=== PATIENT | female | born 1965 | race Caucasian/White ===

== ENCOUNTER → 2025-07-12 | Outpatient (CLI) | payer BC, SELFPAY ==
[2025-07-12 17:54] LABS: Hematocrit 37.3 % (37-47); Hemoglobin 12.4 g/dL (12.0-15.0); Immature Granulocytes Count 0.000 X10^3/uL (0.0-0.0); Mean Corp Hgb Conc 33.2 g/dL (32-36); Mean Corpuscular Volume 101.4 fL (81-99); Mean Platelet Vol. 9.6 fl (6.2-12.0); NRBC Flagged by Analyzer 0 % (0-5); Platelet Count 202 K/mm3 (150-450); RBC Distribution Width CV 13.4 % (11.6-14.6); RBC Distribution Width SD 49.6 fl (35.1-43.9); Red Blood Count 3.68 M/mm3 (4.2-5.4); White Blood Count 3.7 K/mm3 (4.4-11.0)
[2025-07-12 18:12] LABS: AST(SGOT) 37 U/L (<=31); Alanine Aminotransfer ALT/SGPT 36 U/L (<=34); Albumin, Serum 4.2 g/dL (3.5-5.0); Alkaline Phosphatase 66 U/L (35-104); Anion Gap 9 (5-15); BUN 16 mg/dL (4-19); BUN/Creat Ratio 14.9 RATIO (10-20); Calcium,Total 9.2 mg/dL (7.6-11.0); Carbon Dioxide 26.8 mmol/L (21.0-32.0); Chloride 104 mmol/L (98-108); Cholesterol 241 mg/dL (<=200); Globulin 2.6 g/dL (2.2-4.2); Glucose 104 mg/dL (70-99); Low Density Lipoprotein Calc. 127 mg/dL; Potassium 4.6 mmol/L (3.3-5.1); Triglycerides 170 mg/dL; Very Low Density Lipoprotein 34 mg/dL (5-40); Vitamin B12 1297 pg/mL (180-914); Vitamin D,25 Hydroxy 37.7 ng/mL (30-100); cholesterol:hdl ratio screen 2.83
== END | disposition home or self-care (01) ==
LOC: VSLAB 16:08
PROVIDERS: Referring Provider Nurse Practitioner Family; Visit Provider Nurse Practitioner Family
DX: M06.9 Rheumatoid arthritis, unspecified (principal); E56.9 Vitamin deficiency, unspecified
CPT/HCPCS: 36415; 80053; 80061; 82306; 82607; 84443; 85025; 86376; 86800

== ENCOUNTER → 2025-08-09 | Outpatient (CLI) | payer BC, SELFPAY ==
--- OUTSIDE RECORDS SUMMARY | 2025-08-09 14:30 | XMS RPT_ITS | CCD ---
Author Organization [facility] Care Team Providers Care Machine Design Checker Name Role Phone ROBBY, PACHECO D Unavailable Unavailable REFERRED, SELF Unavailable Unavailable WAGES, YURI W Unavailable Unavailable ROBBY, PACHECO D Unavailable Unavailable ROBBY, PACHECO D Unavailable Unavailable WAGES, YURI W Unavailable Unavailable WAGES, YURI W Unavailable Unavailable ROBBY, PACHECO D Unavailable Unavailable ROBBY, PACHECO D Unavailable Unavailable WAGES, YURI W Unavailable Unavailable ROBBY, PACHECO D Unavailable Unavailable ROBBY, PACHECO D Unavailable Unavailable WAGES, YURI W Unavailable Unavailable ROBBY, PACHECO D Unavailable Unavailable ROBBY, PACHECO D Unavailable Unavailable WAGES, YURI W Unavailable Unavailable ROBBY, PACHECO D Unavailable Unavailable ROBBY, PACHECO D Unavailable Unavailable WAGES, YURI W Unavailable Unavailable ROBBY, PACHECO D Unavailable Unavailable ROBBY, PACHECO D Unavailable Unavailable WAGES, YURI W Unavailable Unavailable ROBBY, PACHECO D Unavailable Unavailable ROBBY, PACHECO D Unavailable Unavailable WAGES, YURI W Unavailable Unavailable ROBBY, PACHECO D Unavailable Unavailable ROBBY, PACHECO D Unavailable Unavailable WAGES, YURI W Unavailable Unavailable ROBBY, PACHECO D Unavailable Unavailable ROBBY, PACHECO D Unavailable Unavailable José Miguel Elizabeth Unavailable Unavailable Wages, Yuri Unavailable Unavailable Wages, Yuri Unavailable Unavailable Wages, Yuri W Primary Care Provider José Miguel Elizabeth Primary Care Provider José Miguel Elizabeth MD Primary Care Provider JOSÉ MIGUEL ELIZABETH Primary Care Unavailable José Miguel Elizabeth MD Primary Care Provider [phone] José Miguel Elizabeth MD Primary Care Provider JOSÉ MIGUEL ELIZABETH Primary Care Unavailable KERRY JEREZ Referring Unavailable JOSÉ MIGUEL ELIZABETH Primary Care Unavailable MAXINE JEREZISTEN Referring Unavailable José Miguel Elizabeth Primary Care Provider [phone] José Miguel Elizabeth MD Primary Care Provider JOSÉ MIGUEL ELIZABETH Attending Unavailable JOSÉ MIGUEL ELIZABETH Referring Unavailable ELIZABETH, JOSÉ MIGUEL Primary Care Unavailable JOSÉ MIGUEL ELIZABETH Attending Unavailable GLENN, JOSÉ MIGUEL Referring Unavailable ELIZABETH, JOSÉ MIGUEL Primary Care Unavailable JOSÉ MIGUEL ELIZABETH Attending Unavailable GLENN, JOSÉ MIGUEL Referring Unavailable GLENN, JOSÉ MIGUEL Primary Care Unavailable DASH-BUCK, EVANGELINA Attending Unavailable JOSÉ MIGUEL ELIZABETH Primary Care Unavailable Logan STEVENSON, Addison Echeverria Unavailable Mike Santamaria Jr, DO Unavailable José Miguel Elizabeth MD Unavailable [phone] Medications Current Medications Medication Drug Class(es) Dates Sig (Normalized) Sig (Original) benoxinate hydrochloride 4 mg/ml / fluorescein sodium 3 mg/ml ophthalmic solution (4 sources) Diagnostic Dye Start: 03-20-2025 End: 03-20-2025 fluorescein-benoxi messi 0.3-0.4 % 1 drop (FLURESS) Start: 03-20-2025 End: 03-20-2025 1 drop, BOTH EYES, DIRECT ED, Starting on Thu03/20/25 at 0800, Until Thu03/20/25 at 1959, Administer for applanation tonometry. In the event of a Fluress shortage, administer 1 drop of Amanda-Fluor into both eyes as directed for applanation tonometry., [facility] MED ORDERS Start: 01-16-2022 End: 01-16-2022 fluorescein-benoxinate 0.25- 0.4 % 1 Drop (FLURESS) Start: 12-27-2021 End: 12-28-2021 fluorescein-benoxinate 0.25- 0.4 % 1 Drop (FLURESS) 1 ml certolizumab pegol 200 mg/ml prefilled syringe (8 sources) Cimzia 400 mg/2 mL (200 mg/mL x 2) subcutaneous syringe kit one injection once every two weeks active Annamaria Martinez AT [facility] Comment on above: Inject 400 mg subcut aneously every 2 weeks. erythromycin base (ILOTYCIN OPHTHALMIC) (7 sources) erythromycin bas e (ILOTYCIN OPHTHALMIC) Use 1 application in the right eye daily at bedtime. Active erythromycin bas e (ILOTYCIN OPHTHALMIC) Use 1 application in the right eye daily at bedtime. 0 Active Comment on above: Use 1 application in the right eye daily at bedtime. folic acid 1 mg oral tablet (8 sources) take 2 tablets by mouth once daily folic acid 1 mg tablet two tablets by mouth once daily active Annamaria Martinez AT [facility] take 1 tablet by mouth twice anival ly folic acid 1 mg tablet Take 1 mg by mouth twice daily. Active Comment on above: Take 1 mg by mouth t wice daily. gabapentin 100 mg oral capsule (2 sources) Anti-epileptic Agent Start: 03-17-2025 gabapentin (NEURONTIN) 100 mg capsule 03/17/2025 Active gabapentin 100 m g capsule two tablets at bedtime active Annamaria Martinez AT [facility] lansoprazole 30 mg delayed release oral capsule (8 sources) Proton Pump Inhibitor Start: 09-15-2013 take 1 capsule by mouth once daily Prevacid 30 mg capsule,delayed release 1 capsule by mouth once a day active Will Srivastava ATC [facility] take 15 mg by mouth once daily L ANSOPRAZOLE ORAL Take 15 mg by mouth once daily. Active Comment on above: Take 15 mg by mouth once daily. meloxicam 15 mg oral tablet (8 sources) Nonsteroidal Anti-inflammatory Drug take 1 tablet by mouth once daily meloxicam 15 mg tablet one tablet by mouth once daily active Annamaria Martinez AT [facility] Comment on above: Take 15 mg by mouth once daily. Methotrexate (8 sources) Folate Analog Metabolic Inhibitor Start: 4 methotrexate sodium 2.5 mg tablet 8 tablet once a week active Etta Suggs LPN [facility] take 8 tablets by mouth once met hotrexate 2.5 mg tablet Take by mouth one time only. 8 tablets every thursday Active Comment on above: Take by mouth one ti me only. 8 tablets every thursday phenylephrine hydrochloride 25 mg/ml ophthalmic solution (3 sources) alpha-1 Adrenergic Agonist Start: 03-20-2025 End: 03-20-2025 PHENYLephrine 2.5 % 1 drop (AK-DILATE, ANNIE-SYNEPHRINE) Start: 03-20-2025 End: 03-20-2025 1 drop, BOTH EYES, DIRECT ED, Starting on Thu03/20/25 at 0800, Until Thu03/20/25 at 1958, Administer for dilation PROTECT FROM LIGHT, [facility] Start: 12-27-2021 End: 12-28-2021 PHENYLephrine 2.5 % 1 Drop ( AK-DILATE, ANNIE-SYNEPHRINE) prednisoLONE acetate 10 mg/ml ophthalmic suspension (7 sources) Corticosteroid Start: 06-13-2021 prednisoLONE a cetate (PRED FORTE, ECONOPRED PLUS) 1 % ophthalmic suspension Use 1 Drop in the right eye four times daily. 5 mL 1 06/13/2021 Active Start: 06-13-2021 prednisoLONE a cetate (PRED FORTE, ECONOPRED PLUS) 1 % ophthalmic suspension Use 1 Drop in the right eye four times daily. 5 mL 1 06/13/2021 Active Comment on above: Use 1 Drop in the ri ght eye four times daily. predniSONE 5 mg oral tablet (8 sources) take 1 tablet by mouth once daily prednisone 5 mg tablet one tablet by mouth once daily active Annamaria Martinez AT [facility] Comment on above: Take 5 mg by mouth o nce daily. As needed proparacaine hydrochloride 5 mg/ml ophthalmic solution (1 source) Local Anesthetic Start: 03-20-20 End: 03-20-20 proparacaine 0.5 % 1 drop (ALCAINE) traMADol hydrochloride 50 mg oral tablet (8 sources) Opioid Agonist take 1 tablet by mouth once daily tramadol 50 mg tablet one tablet by mouth once daily active Annamaria Martinez AT [facility] Comment on above: Take 50 mg by mouth once daily as needed (pain). As needed tropicamide 10 mg/ml ophthalmic solution (3 sources) Anticholinergic Start: 03-20-20 End: 03-20-20 tropicamide 1 % 1 drop (MYDRIACYL) Start: 03-20-2025 End: 03-20-2025 1 drop, BOTH EYES, DIRECT ED, Starting on Thu03/20/25 at 0800, Until Thu03/20/25 at 1959, Administer for dilation, [facility] MED ORDERS Start: 12-27-2021 End: 12-28-2021 tropicamide 1 % 1 Drop (MYDR IACYL) Problems Active Problems Problem Classification Problem Date Documented Date Episodic/Chronic Blindness and vision defects (12 sources) Subjective visual disturbance; Translations: [Unspecified subjective visual disturbances] Onset: 09-19-2021 Episodic Cataract (20 sources) Pseudophakia of right eye; Translations: [Presence of intraocular lens] Onset: 05-14-2015 Chronic Nutritional deficiencies (6 sources) Vitamin D deficiency; Translations: [Vitamin D deficiency, unspecified] Onset: 01-16-2022 01-16-2022 Chronic Osteoarthritis (16 sources) Bilateral arthritis of knees; Translations: [Bilateral primary osteoarthritis of knee] Onset: 01-16-2022 01-16-2022 Chronic Other acquired deformities (1 source) Equinus contracture of the ankle; Translations: [Contracture, left ankle] Onset: 03-31-2023 03-31-2023 Chronic Other connective tissue disease (1 source) History of total knee arthroplasty; Translations: [Presence of right artificial knee joint] Onset: 09-10-2023 11-26-2023 Chronic Other eye disorders (7 sources) Vitreous syneresis; Translations: [Other vitreous opacities, right eye] Onset: 09-19-2021 09-19-2021 Chronic Other eye disorders (2 sources) Tear film insufficiency; Translations: [Dry eye syndrome of bilateral lacrimal glands] Episodic Other eye disorders (1 source) Dry eye syndrome of bilateral lacrimal glands; Translations: [Dry eye syndrome, bilateral] Onset: 03-20-2025 Episodic Other injuries and conditions due to external causes (1 source) History of injury of globe of eye; Translations: [Personal history of other (healed) physical injury and trauma] 03-20-2025 Episodic Other injuries and conditions due to external causes (1 source) Personal history of other (healed) physical injury and trauma; Translations: [History of corneal abrasion] Onset: 03-20-2025 Episodic Other non-traumatic joint disorders (2 sources) Other specific arthropathies, not elsewhere classified, right shoulder; Translations: [Arthropathy, unspecified, shoulder region] Onset: 06-21-2025 06-21-2025 Chronic Other non-traumatic joint disorders (3 sources) Pain in right knee; Translations: [Pain in joint, lower leg] Onset: 10-12-2023 10-12-2023 Episodic Other screening for suspected conditions (not mental disorders or infectious disease) (17 sources) Encounter for screening mammogram for malignant neoplasm of breast; Translations: [Patient encounter status] Onset: 08-19-2018 09-22-2023 Episodic Residual codes; unclassified (1 source) Localized edema; Translations: [Localized edema] Onset: 02-17-2024 Episodic Residual codes; unclassified (1 source) Edema; Translations: [Edema, unspecified] 02-29-2024 Episodic Residual codes; unclassified (1 source) Other specified postprocedural states; Translations: [History of ptosis repair] Onset: 03-20-2025 Episodic Rheumatoid arthritis and related disease (8 sources) Rheumatoid arthritis; Translations: [Rheumatoid arthritis, unspecified] Onset: 01-16-2022 01-16-2022 Chronic Spondylosis; intervertebral disc disorders; other back problems (6 sources) Degeneration of lumbar intervertebral disc; Translations: [Other intervertebral disc degeneration, lumbar region] Onset: 01-16-2022 01-16-2022 Chronic Superficial injury; contusion (1 source) Abrasion of cornea of right eye; Translations: [Injury of conjunctiva and corneal abrasion without foreign body, right eye, subsequent encounter] Episodic Past or Other Problems Problem Classification Problem Date Documented Da te Episodic/Chronic Fracture of lower limb (1 source) Closed fracture of ankle; Translations: [Other fracture of right lower leg, initial encounter for closed fracture] Onset: 04-12-2024 04-12-2024 Episodic Other aftercare (6 sources) Long-term current use of drug therapy; Translations: [Other correction (current) drug therapy] Onset: 01-16-2022 01-16-2022 Episodic Other connective tissue disease (6 sources) Dupuytren's contracture; Translations: [Palmar fascial fibromatosis [Dupuytren]] Onset: 01-16-2022 01-16-2022 Episodic Other connective tissue disease (6 sources) Trochanteric bursitis of left hip; Translations: [Trochanteric bursitis, left hip] Onset: 01-16-2022 01-16-2022 Episodic Other connective tissue disease (1 source) Achilles tendinitis; Translations: [Achilles tendinitis, left leg] Onset: 03-31-2023 03-31-2023 Episodic Other diseases of kidney and ureters (6 sources) Abnormal renal function; Translations: [Disorder of kidney and ureter, unspecified] Onset: 01-16-2022 01-16-2022 Episodic Other injuries and conditions due to external causes (1 source) Injury of lower leg; Translations: [Other injury of other muscle(s) and tendon(s) at lower leg level, right leg, initial encounter] Onset: 03-31-2023 03-31-2023 Episodic Results Test Name Value Interpretation Reference Range Facility Relevant diagnostic tests/la boratory data Narrativeon 06-21-2025 Fall risk assessment no [id number] Work Phone: MEDS REVIEW Done [employer] Work Phone: MEDS REVIEWD Medications reviewed with changes [employer] Work Phone: XRAY HX of the right shoulde r on 06/12/2025 at [facility] [employer] Work Phone: BI US BREAST LIMITED LEFTon 11-02-2024 BI US BREAST LIMITED LEFT This is a summary report. The complete report is available in the patient's medical record. If you cannot access the medical record, please contact the sending organization for a detailed fax or copy. Patient Name: MALIA [facility]REVINO : 1965 [id number] Exam Date/Time: 11/02/2024 13:45 Procedure: BI US BREAST LIMITED LEFT Ordering Provider: ELIZABETH KRISTY Reason For Exam: ABNORMAL MAMMOGRAM This exam was performed at [facility] [address] [place] [id number] PATIENT CANCER HISTORY: No Personal History of Cancer (accession [id number]), PATIENT CANCER HISTORY: No Personal History of Cancer (accession [id number]) FAMILY CANCER HISTORY: Maternal Grandmother Colon Cancer age 80 (accession [id number]), FAMILY CANCER HISTORY: Maternal Grandmother Colon Cancer age 80 (accession [id number]) COMPARISONS: 09/27/2024 MAMMOGRAM: Image views: 2D CC and MLO views were acquired. 3D CC and MLO views were acquired. Markings on images: BB's = Nipples; skin lesions Open [place] = Palpable Line = Scar TISSUE DENSITY: BIRADS B - There are scattered areas of fibroglandular density. Images were reviewed with CAD. FINDINGS: The patient is a 59-year-old who was recalled from a screening mammogram dated 09/27/2024 for asymmetry in the superior, mid depth of the left breast in the MLO view. Additional views fail to demonstrate a discrete mass or parenchymal distortion. The area of asymmetry is less conspicuous compared to the screening mammogram of 09/27/2024. The patient was sent for ultrasound evaluation. BREAST ULTRASOUND: FINDINGS: Targeted ultrasound of the left breast was performed. The upper inner and upper outer quadrants were surveyed. No mass or focal abnormality is seen. IMPRESSION: No mass or focal abnormality is seen. The patient may resume routine screening mammograms in one year. ASSESSMENT: Category 1 Negative RECOMMENDATION: Routine screening mammogram in 1 year. Bilateral CANCER RISK ASSESSMENT: This risk assessment is based on patient provided information collected in a risk survey taken at the time of this examination. LIFETIME BREAST CANCER RISK: Sheila 8: 11.61% - If greater than or equal to 20%, consider annual mammogram and annual screening Breast MRI or follow up in high risk clinic. Is the patient at elevated risk based on the HBOC criteria? No (Hereditary Breast and Ovarian Cancer) - If Yes, consider genetic counseling and testing with high risk follow up Is the patient at elevated risk based on the Gonzales Syndrome criteria? No - If Yes, consider genetic counseling and testing with high risk follow up. Report Dictated on Electronically Signed By: Ary Dozier MD Electronically Signed Date/Time: 11/02/2024 1:58 PM EST Normal [facility] DBT Breast - left diagnostic on 11-02-2024 Patient Name: MALIA LEE : 1965 Exam Date/Time: 11/02/2024 13:02 Procedure: BI MAMMOGRAM DIAGNOSTIC TOMOSYNTHESIS LEFT Ordering Provider: ELIZABETH KRISTY Reason For Exam: This exam was performed at [facility] [address] [place] [id number] PATIENT CANCER HISTORY: No Personal History of Cancer (accession [id number]), PATIENT CANCER HISTORY: No Personal History of Cancer (accession [id number]) FAMILY CANCER HISTORY: Maternal Grandmother Colon Cancer age 80 (accession [id number]), FAMILY CANCER HISTORY: Maternal Grandmother Colon Cancer age 80 (accession [id number]) COMPARISONS: 09/27/2024 MAMMOGRAM: Image views: 2D CC and MLO views were acquired. 3D CC and MLO views were acquired. Markings on images: BB's = Nipples; skin lesions Open [place] = Palpable Line = Scar TISSUE DENSITY: BIRADS B - There are scattered areas of fibroglandular density. Images were reviewed with CAD. FINDINGS: The patient is a 59-year-old who was recalled from a screening mammogram dated 09/27/2024 for asymmetry in the superior, mid depth of the left breast in the MLO view. Additional views fail to demonstrate a discrete mass or parenchymal distortion. The area of asymmetry is less conspicuous compared to the screening mammogram of 09/27/2024. The patient was sent for ultrasound evaluation. BREAST ULTRASOUND: FINDINGS: Targeted ultrasound of the left breast was performed. The upper inner and upper outer quadrants were surveyed. No mass or focal abnormality is seen. [facility] Ary Dozier MD - 11/02/2024 Patient Name: MALIA [facility]REVINO : 1965 [id number] Exam Date/Time: 11/02/2024 13:02 Procedure: BI MAMMOGRAM DIAGNOSTIC TOMOSYNTHESIS LEFT Ordering Provider: ELIZABETH KRISTY Reason For Exam: This exam was performed at [facility] [address] [facility] [address] PATIENT CANCER HISTORY: No Personal History of Cancer (accession [id number]), PATIENT CANCER HISTORY: No Personal History of Cancer (accession [id number]) FAMILY CANCER HISTORY: Maternal Grandmother Colon Cancer age 80 (accession [id number]), FAMILY CANCER HISTORY: Maternal Grandmother Colon Cancer age 80 (accession [id number]) COMPARISONS: 09/27/2024 MAMMOGRAM: Image views: 2D CC and MLO views were acquired. 3D CC and MLO views were acquired. Markings on images: BB's = Nipples; skin lesions Open [place] = Palpable Line = Scar TISSUE DENSITY: BIRADS B - There are scattered areas of fibroglandular density. Images were reviewed with CAD. FINDINGS: The patient is a 59-year-old who was recalled from a screening mammogram dated 09/27/2024 for asymmetry in the superior, mid depth of the left breast in the MLO view. Additional views fail to demonstrate a discrete mass or parenchymal distortion. The area of asymmetry is less conspicuous compared to the screening mammogram of 09/27/2024. The patient was sent for ultrasound evaluation. BREAST ULTRASOUND: FINDINGS: Targeted ultrasound of the left breast was performed. The upper inner and upper outer quadrants were surveyed. No mass or focal abnormality is seen. IMPRESSION: No mass or focal abnormality is seen. The patient may resume routine screening mammograms in one year. ASSESSMENT: Category 1 Negative RECOMMENDATION: Routine screening mammogram in 1 year. Bilateral CANCER RISK ASSESSMENT: This risk assessment is based on patient provided information collected in a risk survey taken at the time of this examination. LIFETIME BREAST CANCER RISK: Sheila 8: 11.61% - If greater than or equal to 20%, consider annual mammogram and annual screening Breast MRI or follow up in high risk clinic. Is the patient at elevated risk based on the HBOC criteria? No (Hereditary Breast and Ovarian Cancer) - If Yes, consider genetic counseling and testing with high risk follow up Is the patient at elevated risk based on the Gonzales Syndrome criteria? No - If Yes, consider genetic counseling and testing with high risk follow up. Report Dictated on Electronically Signed By: Ary Dozier MD Electronically Signed Date/Time: 11/02/2024 1:58 PM EST [facility] Study observation (narrative) [facility] No Panel Informationon 11-02 No mass or focal abnormality is seen. The patient may resume routine screening mammograms in one year. ASSESSMENT: Category 1 Negative RECOMMENDATION: Routine screening mammogram in 1 year. Bilateral CANCER RISK ASSESSMENT: This risk assessment is based on patient provided information collected in a risk survey taken at the time of this examination. LIFETIME BREAST CANCER RISK: Sheila 8: 11.61% - If greater than or equal to 20%, consider annual mammogram and annual screening Breast MRI or follow up in high risk clinic. Is the patient at elevated risk based on the HBOC criteria? No (Hereditary Breast and Ovarian Cancer) - If Yes, consider genetic counseling and testing with high risk follow up Is the patient at elevated risk based on the Gonzales Syndrome criteria? No - If Yes, consider genetic counseling and testing with high risk follow up. Report Dictated on Electronically Signed By: Ary Dozier MD Electronically Signed Date/Time: 11/02/2024 1:58 PM [facility] No Panel InformationOrdered By: Ary Dozier on 11-02-2024 [facility] Phone: US Breast - left limitedon 0 11-02-2024 Patient Name: MALIA LEE : 1965 Exam Date/Time: 11/02/2024 13:45 Procedure: BI US BREAST LIMITED LEFT Ordering Provider: ELIZABETH KRISTY Reason For Exam: ABNORMAL MAMMOGRAM This exam was performed at [facility] [address] [place] [address] PATIENT CANCER HISTORY: No Personal History of Cancer (accession [id number]), PATIENT CANCER HISTORY: No Personal History of Cancer (accession [id number]) FAMILY CANCER HISTORY: Maternal Grandmother Colon Cancer age 80 (accession [id number]), FAMILY CANCER HISTORY: Maternal Grandmother Colon Cancer age 80 (accession [id number]) COMPARISONS: 09/27/2024 MAMMOGRAM: Image views: 2D CC and MLO views were acquired. 3D CC and MLO views were acquired. Markings on images: BB's = Nipples; skin lesions Open [place] = Palpable Line = Scar TISSUE DENSITY: BIRADS B - There are scattered areas of fibroglandular density. Images were reviewed with CAD. FINDINGS: The patient is a 59-year-old who was recalled from a screening mammogram dated 09/27/2024 for asymmetry in the superior, mid depth of the left breast in the MLO view. Additional views fail to demonstrate a discrete mass or parenchymal distortion. The area of asymmetry is less conspicuous compared to the screening mammogram of 09/27/2024. The patient was sent for ultrasound evaluation. BREAST ULTRASOUND: FINDINGS: Targeted ultrasound of the left breast was performed. The upper inner and upper outer quadrants were surveyed. No mass or focal abnormality is seen. [facility] Ary Dozier MD - 11/02/2024 Patient Name: MALIA TREVINO : 1965 Exam Date/Time: 11/02/2024 13:45 Procedure: BI US BREAST LIMITED LEFT Ordering Provider: ELIZABETH KRISTY Reason For Exam: ABNORMAL MAMMOGRAM This exam was performed at [facility] [address] [place], [place] [id number] PATIENT CANCER HISTORY: No Personal History of Cancer (accession [id number]), PATIENT CANCER HISTORY: No Personal History of Cancer (accession [id number]) FAMILY CANCER HISTORY: Maternal Grandmother Colon Cancer age 80 (accession [id number]), FAMILY CANCER HISTORY: Maternal Grandmother Colon Cancer age 80 (accession [id number]) COMPARISONS: 09/27/2024 MAMMOGRAM: Image views: 2D CC and MLO views were acquired. 3D CC and MLO views were acquired. Markings on images: BB's = Nipples; skin lesions Open [place] = Palpable Line = Scar TISSUE DENSITY: BIRADS B - There are scattered areas of fibroglandular density. Images were reviewed with CAD. FINDINGS: The patient is a 59-year-old who was recalled from a screening mammogram dated 09/27/2024 for asymmetry in the superior, mid depth of the left breast in the MLO view. Additional views fail to demonstrate a discrete mass or parenchymal distortion. The area of asymmetry is less conspicuous compared to the screening mammogram of 09/27/2024. The patient was sent for ultrasound evaluation. BREAST ULTRASOUND: FINDINGS: Targeted ultrasound of the left breast was performed. The upper inner and upper outer quadrants were surveyed. No mass or focal abnormality is seen. IMPRESSION: No mass or focal abnormality is seen. The patient may resume routine screening mammograms in one year. ASSESSMENT: Category 1 Negative RECOMMENDATION: Routine screening mammogram in 1 year. Bilateral CANCER RISK ASSESSMENT: This risk assessment is based on patient provided information collected in a risk survey taken at the time of this examination. LIFETIME BREAST CANCER RISK: Sheila 8: 11.61% - If greater than or equal to 20%, consider annual mammogram and annual screening Breast MRI or follow up in high risk clinic. Is the patient at elevated risk based on the HBOC criteria? No (Hereditary Breast and Ovarian Cancer) - If Yes, consider genetic counseling and testing with high risk follow up Is the patient at elevated risk based on the Gonzales Syndrome criteria? No - If Yes, consider genetic counseling and testing with high risk follow up. Report Dictated on Electronically Signed By: Ary Dozier MD Electronically Signed Date/Time: 11/02/2024 1:58 PM EST [facility] Study observation (narrative) [facility] DBT Breast - bilateral scree ningOrdered By: Ary Dozier on 09-27-2024 Interpretation and review of laboratory results Abnormal [employer] Phone: [employer] Phone: DBT Breast - bilateral scree ningon 09-27-2024 Left breast asymmetr y ASSESSMENT: Category 0 Incomplete: need additional imaging evaluation RECOMMENDATION: Follow-up diagnostic mammogram Left And breast ultrasound if necessary. CANCER RISK ASSESSMENT: This risk assessment is based on patient provided information collected in a risk survey taken at the time of this examination. LIFETIME BREAST CANCER RISK: Shewta-Jacquelyn 8: 11.61% - If greater than or equal to 20%, consider annual mammogram and annual screening Breast MRI or follow up in high risk clinic. Is the patient at elevated risk based on the HBOC criteria? No (Hereditary Breast and Ovarian Cancer) - If Yes, consider genetic counseling and testing with high risk follow up Is the patient at elevated risk based on the Gonzales Syndrome criteria? No - If Yes, consider genetic counseling and testing with high risk follow up. Report Dictated on Electronically Signed By: Ary Dozier MD Electronically Signed Date/Time: 09/27/2024 12:54 PM EST [facility] Patient Name: MALIA LEE : 1965 Exam Date/Time: 09/27/2024 12:03 Procedure: BI MAMMOGRAM SCREENING TOMOSYNTHESIS BILATERAL Ordering Provider: ELIZABETH KRISTY Reason For Exam: This exam was performed at [facility] [address] [place] [address] PATIENT CANCER HISTORY: No Personal History of Cancer FAMILY CANCER HISTORY: Maternal Grandmother Colon Cancer age 80 Image views: 2D Bilateral CC and MLO views were acquired. 3D Bilateral CC and MLO views were acquired. Images were reviewed with CAD. Markings on images: BB's = Nipples; skin lesions Open [place] = Palpable Line = Scar COMPARISON: 09/10/2022, 09/22/2023 TISSUE DENSITY: BIRADS B - There are scattered areas of fibroglandular density. FINDINGS: There is asymmetry in the mid depth of the left breast just above the nipple line in the MLO view. No discrete masses, parenchymal distortion or suspicious calcifications are seen on the right. [facility] Ary Dozier MD - 09/27/2024 Patient Name: MALIA TREVINO : 1965 Exam Date/Time: 09/27/2024 12:03 Procedure: BI MAMMOGRAM SCREENING TOMOSYNTHESIS BILATERAL Ordering Provider: ELIZABETH KRISTY Reason For Exam: This exam was performed at [facility] [address] [place] [address] PATIENT CANCER HISTORY: No Personal History of Cancer FAMILY CANCER HISTORY: Maternal Grandmother Colon Cancer age 80 Image views: 2D Bilateral CC and MLO views were acquired. 3D Bilateral CC and MLO views were acquired. Images were reviewed with CAD. Markings on images: BB's = Nipples; skin lesions Open [place] = Palpable Line = Scar COMPARISON: 09/10/2022, 09/22/2023 TISSUE DENSITY: BIRADS B - There are scattered areas of fibroglandular density. FINDINGS: There is asymmetry in the mid depth of the left breast just above the nipple line in the MLO view. No discrete masses, parenchymal distortion or suspicious calcifications are seen on the right. IMPRESSION: Left breast asymmetry ASSESSMENT: Category 0 Incomplete: need additional imaging evaluation RECOMMENDATION: Follow-up diagnostic mammogram Left And breast ultrasound if necessary. CANCER RISK ASSESSMENT: This risk assessment is based on patient provided information collected in a risk survey taken at the time of this examination. LIFETIME BREAST CANCER RISK: Sheila 8: 11.61% - If greater than or equal to 20%, consider annual mammogram and annual screening Breast MRI or follow up in high risk clinic. Is the patient at elevated risk based on the HBOC criteria? No (Hereditary Breast and Ovarian Cancer) - If Yes, consider genetic counseling and testing with high risk follow up Is the patient at elevated risk based on the Gonzales Syndrome criteria? No - If Yes, consider genetic counseling and testing with high risk follow up. Report Dictated on Electronically Signed By: Ary Dozier MD Electronically Signed Date/Time: 09/27/2024 12:54 PM EST [facility] Study observation (narrative) [facility] CT CHEST W IVCON PEon 2023 CT CHEST W IVCON PE * * *Final Report* * * DATE OF EXAM: Feb 17 2024 12:21PM [facility] 0540 - CT CHEST W IVCON PE / PROCEDURE REASON: r06.02 * * * * Physician Interpretation * * * * EXAMINATION: CHEST CT WITH CONTRAST (PULMONARY EMBOLISM PROTOCOL) CLINICAL HISTORY: Right arm and leg swelling Technique: Spiral CT acquisition of the chest from the thoracic inlet to the upper abdomen following IV contrast. Axial 1 and 3 mm thick slices plus coronal and sagittal reformatted images. MQ: CTCP_5 Contrast: 62 mL Omnipaque [address] Radiation dose: Integrated Dose-length product (DLP) for this visit = 483 mGy*cm CT Dose Reduction Employed: Automated exposure control (AEC) Comparison: No relevant prior studies available. RESULT: Limitations: None. Evaluation for thromboembolic disease: - Right heart chambers: No thromboembolic disease. - Main pulmonary arteries: No thromboembolic disease. - Lobar pulmonary arteries: No thromboembolic disease. - Segmental pulmonary arteries: No thromboembolic disease. - Subsegmental pulmonary arteries: No thromboembolic disease. - Additional pulmonary artery findings: The main pulmonary artery is normal in caliber. Lines, tubes, and devices: None. Lung parenchyma and airways: No consolidation. No suspicious pulmonary nodule. The central airways are patent. Pleural space: No pleural effusion. No pleural thickening. Lower neck, lymph nodes, and mediastinum: The imaged thyroid gland is normal. No lymphadenopathy in the supraclavicular, axillary, mediastinal, or hilar regions. Heart, pericardium, and thoracic vessels: The thoracic aorta is normal in caliber. The cardiac chambers are normal in size. No coronary artery atherosclerotic calcifications are noted, although the study is not optimized for coronary assessment. No pericardial effusion or thickening. Bones and soft tissues: There is fluid distention of the right subcoracoid bursa. Osteoarthritis of the left shoulder noted. Upper abdomen: 0.6 cm hypodensity at the posterior aspect of the hepatic dome is too small to characterize but likely a cyst. Localizer images: No additional findings. IMPRESSION: 1. No CT evidence of pulmonary embolism. 2. Lungs appear clear. 3. Fluid distention of the right shoulder subcoracoid bursa. Osteoarthritis left shoulder. Sql Server Developer: [employer] Transcribe Date/Time: Feb 17 2024 12:40P Dictated by : ANGELITA RICO MD This examination was interpreted and the report reviewed and electronically signed by: ANGELITA RICO MD on Feb 17 2024 12:45PM EST [id number] Normal [facility] CTA Pulmonary arteries for p ulmonary embolus W contrast Deonte 02-17-[address]: [address] evidence of pulmonary embolism. 2. Lungs appear clear. 3. Fluid distention of the right shoulder subcoracoid bursa. Osteoarthritis left shoulder. Sql Server Developer: [employer] Transcribe Date/Time: Feb 17 2024 12:40P Dictated by : ANGELITA RICO MD This examination was interpreted and the report reviewed and electronically signed by: ANGELITA RICO MD on Feb 17 2024 12:45PM EST [employer] [facility] * * *Final Report* * * DATE OF EXAM: Feb 17 2024 12:21PM [facility] 0540 - CT CHEST W IVCON PE / PROCEDURE REASON: r06.02 * * * * Physician Interpretation * * * * EXAMINATION: CHEST CT WITH CONTRAST (PULMONARY EMBOLISM PROTOCOL) CLINICAL HISTORY: Right arm and leg swelling Technique: Spiral CT acquisition of the chest from the thoracic inlet to the upper abdomen following IV contrast. Axial 1 and 3 mm thick slices plus coronal and sagittal reformatted images. MQ: CTCP_5 Contrast: 62 mL Omnipaque [address] Radiation dose: Integrated Dose-length product (DLP) for this visit = 483 mGy*cm CT Dose Reduction Employed: Automated exposure control (AEC) Comparison: No relevant prior studies available. RESULT: Limitations: None. Evaluation for thromboembolic disease: - Right heart chambers: No thromboembolic disease. - Main pulmonary arteries: No thromboembolic disease. - Lobar pulmonary arteries: No thromboembolic disease. - Segmental pulmonary arteries: No thromboembolic disease. - Subsegmental pulmonary arteries: No thromboembolic disease. - Additional pulmonary artery findings: The main pulmonary artery is normal in caliber. Lines, tubes, and devices: None. Lung parenchyma and airways: No consolidation. No suspicious pulmonary nodule. The central airways are patent. Pleural space: No pleural effusion. No pleural thickening. Lower neck, lymph nodes, and mediastinum: The imaged thyroid gland is normal. No lymphadenopathy in the supraclavicular, axillary, mediastinal, or hilar regions. Heart, pericardium, and thoracic vessels: The thoracic aorta is normal in caliber. The cardiac chambers are normal in size. No coronary artery atherosclerotic calcifications are noted, although the study is not optimized for coronary assessment. No pericardial effusion or thickening. Bones and soft tissues: There is fluid distention of the right subcoracoid bursa. Osteoarthritis of the left shoulder noted. Upper abdomen: 0.6 cm hypodensity at the posterior aspect of the hepatic dome is too small to characterize but likely a cyst. Localizer images: No additional findings. [facility], [facility] * * *Final Report* * * DATE OF EXAM: Feb 17 2024 12:21PM [facility] 0540 - CT CHEST W IVCON PE / PROCEDURE REASON: r06.02 * * * * Physician Interpretation * * * * EXAMINATION: CHEST CT WITH CONTRAST (PULMONARY EMBOLISM PROTOCOL) CLINICAL HISTORY: Right arm and leg swelling Technique: Spiral CT acquisition of the chest from the thoracic inlet to the upper abdomen following IV contrast. Axial 1 and 3 mm thick slices plus coronal and sagittal reformatted images. MQ: CTCP_5 Contrast: 62 mL Omnipaque [address] Radiation dose: Integrated Dose-length product (DLP) for this visit = 483 mGy*cm CT Dose Reduction Employed: Automated exposure control (AEC) Comparison: No relevant prior studies available. RESULT: Limitations: None. Evaluation for thromboembolic disease: - Right heart chambers: No thromboembolic disease. - Main pulmonary arteries: No thromboembolic disease. - Lobar pulmonary arteries: No thromboembolic disease. - Segmental pulmonary arteries: No thromboembolic disease. - Subsegmental pulmonary arteries: No thromboembolic disease. - Additional pulmonary artery findings: The main pulmonary artery is normal in caliber. Lines, tubes, and devices: None. Lung parenchyma and airways: No consolidation. No suspicious pulmonary nodule. The central airways are patent. Pleural space: No pleural effusion. No pleural thickening. Lower neck, lymph nodes, and mediastinum: The imaged thyroid gland is normal. No lymphadenopathy in the supraclavicular, axillary, mediastinal, or hilar regions. Heart, pericardium, and thoracic vessels: The thoracic aorta is normal in caliber. The cardiac chambers are normal in size. No coronary artery atherosclerotic calcifications are noted, although the study is not optimized for coronary assessment. No pericardial effusion or thickening. Bones and soft tissues: There is fluid distention of the right subcoracoid bursa. Osteoarthritis of the left shoulder noted. Upper abdomen: 0.6 cm hypodensity at the posterior aspect of the hepatic dome is too small to characterize but likely a cyst. Localizer images: No additional findings. IMPRESSION IMPRESSION: 1. No CT evidence of pulmonary embolism. 2. Lungs appear clear. 3. Fluid distention of the right shoulder subcoracoid bursa. Osteoarthritis left shoulder. Sql Server Developer: [employer] Transcribe Date/Time: Feb 17 2024 12:40P Dictated by : ANGELITA RICO MD This examination was interpreted and the report reviewed and electronically signed by: ANGELITA RICO MD on Feb 17 2024 12:45PM EST [facility] Radiology Study observation (narrative) [facility] CTA Pulmonary arteries for p ulmonary embolus W contrast IVOrdered By: Ccf Provider on 02-17-2024 [facility] US DVT LOWER RTon 02-17-2024 US DVT LOWER RT * * *Final Report* * * DATE OF EXAM: Feb 17 2024 11:45AM [facility] 1007 - US DVT LOWER RT / PROCEDURE REASON: r60.0 * * * * Physician Interpretation * * * * EXAMINATION: RIGHT LOWER EXTREMITY DEEP VENOUS ULTRASOUND WITH DOPPLER IMAGING CLINICAL HISTORY: Lower extremity swelling TECHNIQUE: Grayscale with compression maneuvers, color Doppler and spectral Doppler imaging of the right proximal deep veins was performed. Grayscale with compression maneuvers of the peroneal and posterior tibial veins was performed. The right great and small saphenous veins were evaluated at their insertion to the deep system. The contralateral common femoral vein was imaged for comparison. Images were obtained and stored in a permanent archive. MQ: USLER_1 COMPARISON: None RESULT: RIGHT LOWER EXTREMITY PROXIMAL DEEP VEINS Distal External Iliac, Common Femoral and proximal Profunda Veins: Compression: Normal Doppler: Normal, spontaneous respirophasic flow. Normal response to augmentation. Femoral vein: Compression: Normal Doppler: Normal, spontaneous flow. Normal response to augmentation. Popliteal vein: Compression: Normal Doppler: Normal, spontaneous flow. Normal response to augmentation. CALF DEEP VEINS Peroneal veins: Normal compression. Posterior tibial veins: Normal compression. Gastrocnemius and Soleal veins: Not imaged. SUPERFICIAL VEINS Great saphenous: Patent and compressible at insertion into common femoral vein; not otherwise assessed. Small Saphenous: Patent and compressible in the proximal calf, not otherwise assessed. LEFT LOWER EXTREMITY (FOR COMPARISON) Common Femoral Vein: Compression: Normal Doppler: Normal, spontaneous respirophasic flow. Normal response to augmentation. IMPRESSION: Negative study for proximal DVT in the right lower extremity. Negative study for calf DVT in the right lower extremity. Negative study for superficial thrombophlebitis in the imaged segments of the right lower extremity. Sql Server Developer: [employer] Transcribe Date/Time: Feb 17 2024 12:02P Dictated by : ANGELITA RICO MD This examination was interpreted and the report reviewed and electronically signed by: ANGELITA RICO MD on Feb 17 2024 12:04PM EST [id number] Normal [facility] US Lower extremity vein - ri madhavi 02-17-2024 IMPRESSION: Negative study for proximal DVT in the right lower extremity. Negative study for calf DVT in the right lower extremity. Negative study for superficial thrombophlebitis in the imaged segments of the right lower extremity. Sql Server Developer: [employer] Transcribe Date/Time: Feb 17 2024 12:02P Dictated by : ANGELITA RICO MD This examination was interpreted and the report reviewed and electronically signed by: ANGELITA RICO MD on Feb 17 2024 12:04PM EST [facility] * * *Final Report* * * DATE OF EXAM: Feb 17 2024 11:45AM [facility] - US DVT LOWER RT / PROCEDURE REASON: r60.0 * * * * Physician Interpretation * * * * EXAMINATION: RIGHT LOWER EXTREMITY DEEP VENOUS ULTRASOUND WITH DOPPLER IMAGING CLINICAL HISTORY: Lower extremity swelling TECHNIQUE: Grayscale with compression maneuvers, color Doppler and spectral Doppler imaging of the right proximal deep veins was performed. Grayscale with compression maneuvers of the peroneal and posterior tibial veins was performed. The right great and small saphenous veins were evaluated at their insertion to the deep system. The contralateral common femoral vein was imaged for comparison. Images were obtained and stored in a permanent archive. MQ: USLER_1 COMPARISON: None RESULT: RIGHT LOWER EXTREMITY PROXIMAL DEEP VEINS Distal External Iliac, Common Femoral and proximal Profunda Veins: Compression: Normal Doppler: Normal, spontaneous respirophasic flow. Normal response to augmentation. Femoral vein: Compression: Normal Doppler: Normal, spontaneous flow. Normal response to augmentation. Popliteal vein: Compression: Normal Doppler: Normal, spontaneous flow. Normal response to augmentation. CALF DEEP VEINS Peroneal veins: Normal compression. Posterior tibial veins: Normal compression. Gastrocnemius and Soleal veins: Not imaged. SUPERFICIAL VEINS Great saphenous: Patent and compressible at insertion into common femoral vein; not otherwise assessed. Small Saphenous: Patent and compressible in the proximal calf, not otherwise assessed. LEFT LOWER EXTREMITY (FOR COMPARISON) Common Femoral Vein: Compression: Normal Doppler: Normal, spontaneous respirophasic flow. Normal response to augmentation. [facility] Provider, [facility] - 02/17/2024 * * *Final Report* * * DATE OF EXAM: Feb 17 2024 11:45AM [facility] 100[facility] - US DVT LOWER RT / PROCEDURE REASON: r60.0 * * * * Physician Interpretation * * * * EXAMINATION: RIGHT LOWER EXTREMITY DEEP VENOUS ULTRASOUND WITH DOPPLER IMAGING CLINICAL HISTORY: Lower extremity swelling TECHNIQUE: Grayscale with compression maneuvers, color Doppler and spectral Doppler imaging of the right proximal deep veins was performed. Grayscale with compression maneuvers of the peroneal and posterior tibial veins was performed. The right great and small saphenous veins were evaluated at their insertion to the deep system. The contralateral common femoral vein was imaged for comparison. Images were obtained and stored in a permanent archive. MQ: USLER_1 COMPARISON: None RESULT: RIGHT LOWER EXTREMITY PROXIMAL DEEP VEINS Distal External Iliac, Common Femoral and proximal Profunda Veins: Compression: Normal Doppler: Normal, spontaneous respirophasic flow. Normal response to augmentation. Femoral vein: Compression: Normal Doppler: Normal, spontaneous flow. Normal response to augmentation. Popliteal vein: Compression: Normal Doppler: Normal, spontaneous flow. Normal response to augmentation. CALF DEEP VEINS Peroneal veins: Normal compression. Posterior tibial veins: Normal compression. Gastrocnemius and Soleal veins: Not imaged. SUPERFICIAL VEINS Great saphenous: Patent and compressible at insertion into common femoral vein; not otherwise assessed. Small Saphenous: Patent and compressible in the proximal calf, not otherwise assessed. LEFT LOWER EXTREMITY (FOR COMPARISON) Common Femoral Vein: Compression: Normal Doppler: Normal, spontaneous respirophasic flow. Normal response to augmentation. IMPRESSION IMPRESSION: Negative study for proximal DVT in the right lower extremity. Negative study for calf DVT in the right lower extremity. Negative study for superficial thrombophlebitis in the imaged segments of the right lower extremity. Sql Server Developer: [facility] Transcribe Date/Time: Feb 17 2024 12:02P Dictated by : ANGELITA RICO MD This examination was interpreted and the report reviewed and electronically signed by: ANGELITA RICO MD on Feb 17 2024 12:04PM [facility] Radiology Study observation (narrative) [facility] US Lower extremity vein - ri ghtOrdered By: Ccf Provider on 02-17-2024 [facility] XR KNEE SPECIFY 1V RTon 10-01 XR KNEE SPECIFY 1V RT * * *Final Report* * * DATE OF EXAM: Oct 12 2023 1:23PM [facility]11 - XR KNEE SPECIFY 1V RT / PROCEDURE REASON: M25.561-Right knee pain, unspecified chronicity * * * * Physician Interpretation * * * * EXAMINATION / TECHNIQUE: XR KNEE SPECIFY 1V RT PATIENT/TECHNOLOGIST PROVIDED HISTORY: RIGHT KNEE PAIN CLINICAL INFORMATION ( PROVIDED BY ORDERING CLINICIAN) : Right knee pain, unspecified chronicity COMPARISON: None RESULT: Severe bilateral lateral patellofemoral compartment joint space narrowing with [id number] articulation. There is bony irregularity/remodeling of the left lateral patellofemoral compartment with adjacent heterotopic bone. IMPRESSION: Severe lateral patellofemoral compartment osteoarthritis, left greater than right Sql Server Developer: [employer] Transcribe Date/Time: Oct 12 2023 2:30P Dictated by : MIGNON SHELDON MD This examination was interpreted and the report reviewed and electronically signed by: MIGNON SHELDON MD on Oct 12 2023 2:32PM EST [id number] Normal [facility] XR Knee - right Single viewo n 10-12-2023 IMPRESSION: Severe lateral patellofemoral compartment osteoarthritis, left greater than right Sql Server Developer: [email or web address] Transcribe Date/Time: Oct 12 2023 2:30P Dictated by : MIGNON SEHLDON MD This examination was interpreted and the report reviewed and electronically signed by: MIGNON SHELDON MD on Oct 12 2023 2:32PM EST [facility] * * *Final Report* * * DATE OF EXAM: Oct 12 2023 1:23PM [facility] 5211 - XR KNEE SPECIFY 1V RT / PROCEDURE REASON: M25.561-Right knee pain, unspecified chronicity * * * * Physician Interpretation * * * * EXAMINATION / TECHNIQUE: XR KNEE SPECIFY 1V RT PATIENT/TECHNOLOGIST PROVIDED HISTORY: RIGHT KNEE PAIN CLINICAL INFORMATION ( PROVIDED BY ORDERING CLINICIAN) : Right knee pain, unspecified chronicity COMPARISON: None RESULT: Severe bilateral lateral patellofemoral compartment joint space narrowing with [id number] articulation. There is bony irregularity/remodeling of the left lateral patellofemoral compartment with adjacent heterotopic bone. [facility] Provider, [facility] Aleksandra [facility] - 10/12/2023 * * *Final Report* * * DATE OF EXAM: Oct 12 2023 1:23PM [facility] 5211 - XR KNEE SPECIFY 1V RT / PROCEDURE REASON: M25.561-Right knee pain, unspecified chronicity * * * * Physician Interpretation * * * * EXAMINATION / TECHNIQUE: XR KNEE SPECIFY 1V RT PATIENT/TECHNOLOGIST PROVIDED HISTORY: RIGHT KNEE PAIN CLINICAL INFORMATION ( PROVIDED BY ORDERING CLINICIAN) : Right knee pain, unspecified chronicity COMPARISON: None RESULT: Severe bilateral lateral patellofemoral compartment joint space narrowing with [id number] articulation. There is bony irregularity/remodeling of the left lateral patellofemoral compartment with adjacent heterotopic bone. IMPRESSION IMPRESSION: Severe lateral patellofemoral compartment osteoarthritis, left greater than right Sql Server Developer: [employer] Transcribe Date/Time: Oct 12 2023 2:30P Dictated by : MIGNON SHELDON MD This examination was interpreted and the report reviewed and electronically signed by: MIGNON SHELDON MD on Oct 12 2023 2:32PM EST [facility] Radiology Study observation (narrative) [facility] XR Knee - right Single viewO rdered By: Ccf Provider on 10-12-2023 [facility] DBT Breast - bilateral scree ningon 09-22-2023 No mammographic evidence of malignancy. ASSESSMENT: Category 1 Negative RECOMMENDATION: Routine screening mammogram in 1 year. Bilateral CANCER RISK ASSESSMENT: This risk assessment is based on patient provided information collected in a risk survey taken at the time of this examination. LIFETIME BREAST CANCER RISK: SandraerDeepika: 11.63% - If greater than or equal to 20%, consider annual mammogram and annual screening Breast MRI or follow up in high risk clinic. Is the patient at elevated risk based on the HBOC criteria? No (Hereditary Breast and Ovarian Cancer) - If Yes, consider genetic counseling and testing with high risk follow up. Is the patient at elevated risk based on the Gonzales Syndrome criteria? No - If Yes, consider genetic counseling and testing with high risk follow up. Report Dictated on Electronically Signed By: Nadira Quevedo MD Electronically Signed Date/Time: 09/22/2023 12:26 PM [facility] [employer] Patient Name: MALIA LEE : 1965 Exam Date/Time: 09/22/2023 12:23 Procedure: BI MAMMOGRAM SCREENING TOMOSYNTHESIS BILATERAL Ordering Provider: ELIZABETH KRISTY Reason For Exam: z12.31 Image views: 2D Bilateral CC and MLO views were acquired. 3D Bilateral CC and MLO views were acquired. Images were reviewed with CAD. Markings on images: BB's = Nipples; skin lesions Open [place] = Palpable Line = Scar COMPARISON: 09/10/2022 and 09/05/2021 TISSUE DENSITY: BIRADS B - There are scattered fibroglandular densities. FINDINGS: No suspicious masses, architectural distortions or suspiciously clustered microcalcifications are identified. There is no evidence of skin thickening or nipple retraction. There are no significant changes when compared with prior studies. [facility] Nadira Quevedo MD - 09/22/2023 Patient Name: MALIA TREVINO : 1965 Exam Date/Time: 09/22/2023 12:23 Procedure: BI MAMMOGRAM SCREENING TOMOSYNTHESIS BILATERAL Ordering Provider: ELIZABETH KRISTY Reason For Exam: z12.31 Image views: 2D Bilateral CC and MLO views were acquired. 3D Bilateral CC and MLO views were acquired. Images were reviewed with CAD. Markings on images: BB's = Nipples; skin lesions Open [place] = Palpable Line = Scar COMPARISON: 09/10/2022 and 09/05/2021 TISSUE DENSITY: BIRADS B - There are scattered fibroglandular densities. FINDINGS: No suspicious masses, architectural distortions or suspiciously clustered microcalcifications are identified. There is no evidence of skin thickening or nipple retraction. There are no significant changes when compared with prior studies. IMPRESSION: No mammographic evidence of malignancy. ASSESSMENT: Category 1 Negative RECOMMENDATION: Routine screening mammogram in 1 year. Bilateral CANCER RISK ASSESSMENT: This risk assessment is based on patient provided information collected in a risk survey taken at the time of this examination. LIFETIME BREAST CANCER RISK: Sheila: 11.63% - If greater than or equal to 20%, consider annual mammogram and annual screening Breast MRI or follow up in high risk clinic. Is the patient at elevated risk based on the HBOC criteria? No (Hereditary Breast and Ovarian Cancer) - If Yes, consider genetic counseling and testing with high risk follow up. Is the patient at elevated risk based on the Gonzales Syndrome criteria? No - If Yes, consider genetic counseling and testing with high risk follow up. Report Dictated on Electronically Signed By: Nadira Quevedo MD Electronically Signed Date/Time: 09/22/2023 12:26 PM EST [facility] Radiology Study observation (narrative) [facility] DBT Breast - bilateral scree Bryannardered By: Nadira Quevedo on 09-22-2023 [facility] DBT Breast - bilateral elizabethe bryannaefren 09-10-2022 No mammographic evidence of malignancy. ASSESSMENT: Category 1 Negative RECOMMENDATION: Routine screening mammogram in 1 year. Bilateral Report Dictated on Electronically Signed By: Ronnie Barrera Electronically Signed Date/Time: 09/10/2022 2:47 PM EST [facility] Patient Name: MALIA LEE Exam Date/Time: 09/10/2022 12:06 Procedure: BI MAMMOGRAM SCREENING TOMOSYNTHESIS BILATERAL Ordering Provider: ELIZABETH KRISTY Reason For Exam: Image views: 2D Bilateral CC and MLO views were acquired. 3D Bilateral CC and MLO views were acquired. Images were reviewed with CAD. Markings on images: BB's = Nipples; skin lesions Open [place] = Palpable Line = Scar COMPARISON: 2018 TISSUE DENSITY: BIRADS B - There are scattered fibroglandular densities. FINDINGS: No suspicious masses, architectural distortions or suspiciously clustered microcalcifications are identified. There are no significant changes when compared with prior studies. [facility] Ronnie Barrera MD - 09/10/2022 Patient Name: MALIA TREVINO Exam Date/Time: 09/10/2022 12:06 Procedure: BI MAMMOGRAM SCREENING TOMOSYNTHESIS BILATERAL Ordering Provider: ELIZABETH KRISTY Reason For Exam: Image views: 2D Bilateral CC and MLO views were acquired. 3D Bilateral CC and MLO views were acquired. Images were reviewed with CAD. Markings on images: BB's = Nipples; skin lesions Open [place] = Palpable Line = Scar COMPARISON: 2018 TISSUE DENSITY: BIRADS B - There are scattered fibroglandular densities. FINDINGS: No suspicious masses, architectural distortions or suspiciously clustered microcalcifications are identified. There are no significant changes when compared with prior studies. IMPRESSION: No mammographic evidence of malignancy. ASSESSMENT: Category 1 Negative RECOMMENDATION: Routine screening mammogram in 1 year. Bilateral Report Dictated on Electronically Signed By: Ronnie Barrera Electronically Signed Date/Time: 09/10/2022 2:47 PM EST [facility] Rad[facility]narrative) [facility] - bilateral scree ningOrdered By: Ronnie Barrera on 09-10-2022 [employer] Work Phone: MG Breast Tomosynthesis Scr Blon 09-05-2021 [facility] Breast Tomosynthesis Scr Bl Patient Name: MALIA TREVINO Mammography ACCESSION EXAM DATE/TIME PROCEDURE ORDERING PROVIDER [id number] 09/05/2021 11:52 EST [facility] Breast Tomosynthesis MD GLENN, JOSÉ MIGUEL Wilson BI Scr CPT code 89636 [id number] Reason For Exam ([facility] Breast Tomosynthesis BI Scr) screening Report TIME SINCE LAST MAMMOGRAM: Last mammogram was performed 1 year ago. REASON FOR EXAM: screening, asymptomatic. PROCEDURE: MG BREAST TOMOSYNTHESIS BL SCR: SEPTEMBER 05, 2021 - 2D/3D Procedure 3D Bilateral CC and MLO view(s) were taken. 2D Bilateral CC and MLO view(s) were taken. Prior study comparison: September 04, 2020, bilateral MG breast tomosynthesis bl scr performed at [facility]. August 26, 2019, bilateral MG breast tomosynthesis bl scr performed at [facility]. August 19, 2018, bilateral MG breast tomosynthesis bl scr performed at [facility]. TISSUE DENSITY: BIRADS B - There are scattered fibroglandular densities. . PATIENT CANCER HISTORY: No Personal History of Cancer FAMILY CANCER HISTORY: Maternal Grandmother Colon or Rectal Cancer age 80 FINDINGS: No suspicious masses, architectural distortions or suspiciously clustered microcalcifications are identified. There is no evidence of skin thickening or nipple retraction. There are no significant changes when compared with prior studies. Markings on images: BB's = Nipples; skin lesions Open [place] = Palpable Line = Scar 2D digital mammography and tomosynthesis imaging were performed and reviewed with CAD. ASSESSMENT: Category 1 Negative RECOMMENDATION: Routine screening mammogram of both breasts in 1 year. Mammography Report . Report Dictated on Cancer Risk Assessment: This risk assessment is based on patient provided information collected in a risk survey taken at the time of this examination. Lifetime breast cancer risk: Average Risk - If greater than or equal to 20%, consider annual mammogram and annual screening Breast MRI or follow up in high risk clinic. A score of Average Risk indicates a score of less than 20%. Is the patient at elevated risk based on the HBOC criteria? No (Hereditary Breast and Ovarian Cancer) - If yes, consider genetic counseling and testing with high risk follow up. Is the patient at elevated risk based on the Gonzales Syndrome criteria? No - If yes, consider genetic counseling and testing with high risk follow up. Final Signed Date and Time: 09/05/2021 4:44 pm Signed by: MD AURORA, [facility] YARIEL DIGITAL SCREEN [facility] 09-04-2020 Patient Name: MALIA LEE Mammography ACCESSION EXAM DATE/TIME PROCEDURE ORDERING PROVIDER [id number] 09/04/2020 11:49 EST [facility] Breast Tomosynthesis MD ELIZABETH KRISTY L BI Scr CPT code 21875 [id number] Reason For Exam (MG Breast Tomosynthesis BI Scr) screen Report TIME SINCE LAST MAMMOGRAM: Last mammogram was performed 1 year ago. REASON FOR EXAM: screening, asymptomatic. PROCEDURE: MG BREAST TOMOSYNTHESIS BL SCR: SEPTEMBER 04, 2020 - 2D/3D Procedure 3D Bilateral CC and MLO view(s) were taken. 2D Bilateral CC and MLO view(s) were taken. TISSUE DENSITY: BIRADS C - The breast tissue is heterogeneously dense, which could obscure underlying abnormalities. . FINDINGS: No suspicious masses, architectural distortions or suspiciously clustered microcalcifications are identified. There is no evidence of skin thickening or nipple retraction. There are no significant changes when compared with prior studies. No mammographic evidence of malignancy. Markings on images: BB's = Nipples; skin lesions Open [place] = Palpable Line = Scar 2D digital mammography and tomosynthesis imaging were performed and reviewed with CAD. ASSESSMENT: Category 1 Negative RECOMMENDATION: Routine screening mammogram of both breasts in 1 year. . Report Dictated on Cancer Risk Assessment: This risk assessment is based on patient provided information collected in a risk survey taken at the time of this examination. Lifetime breast cancer risk: 13.99% Mammography Report - If greater than or equal to 20%, consider annual mammogram and annual screening Breast MRI or follow up in high risk clinic. Is the patient at elevated risk based on the HBOC criteria? No (Hereditary Breast and Ovarian Cancer) - If yes, consider genetic counseling and testing with high risk follow up. HNPCC mutation risk (Gonzales Syndrome): 1% - if greater than or equal to 5%, consider genetic counseling, testing and screening colonoscopy. --- Final --- Signed Date and Time: 09/04/2020 3:55 pm Signed by: [place] Yuri Begum Incoming Radiology Results From [facility] - 09/04/2020 4:33 PM EST Patient Name: MALIA TREVINO Mammography ACCESSION EXAM DATE/TIME PROCEDURE ORDERING PROVIDER [id number] 09/04/2020 11:49 EST [facility] Breast Tomosynthesis MD ELIZABETH KRISTY L BI Scr CPT code [id number] Reason For Exam (MG Breast Tomosynthesis BI Scr) screen Report TIME SINCE LAST MAMMOGRAM: Last mammogram was performed 1 year ago. REASON FOR EXAM: screening, asymptomatic. PROCEDURE: MG BREAST TOMOSYNTHESIS BL SCR: SEPTEMBER 04, 2020 - 2D/3D Procedure 3D Bilateral CC and MLO view(s) were taken. 2D Bilateral CC and MLO view(s) were taken. TISSUE DENSITY: BIRADS C - The breast tissue is heterogeneously dense, which could obscure underlying abnormalities. . FINDINGS: No suspicious masses, architectural distortions or suspiciously clustered microcalcifications are identified. There is no evidence of skin thickening or nipple retraction. There are no significant changes when compared with prior studies. No mammographic evidence of malignancy. Markings on images: BB's = Nipples; skin lesions Open [place] = Palpable Line = Scar 2D digital mammography and tomosynthesis imaging were performed and reviewed with CAD. ASSESSMENT: Category 1 Negative RECOMMENDATION: Routine screening mammogram of both breasts in 1 year. . Report Dictated on Cancer Risk Assessment: This risk assessment is based on patient provided information collected in a risk survey taken at the time of this examination. Lifetime breast cancer risk: 13.99% Mammography Report - If greater than or equal to 20%, consider annual mammogram and annual screening Breast MRI or follow up in high risk clinic. Is the patient at elevated risk based on the HBOC criteria? No (Hereditary Breast and Ovarian Cancer) - If yes, consider genetic counseling and testing with high risk follow up. HNPCC mutation risk (Gonzales Syndrome): 1% - if greater than or equal to 5%, consider genetic counseling, testing and screening colonoscopy. --- Final --- Signed Date and Time: 09/04/2020 3:55 pm Signed by: DO SUE [place], [place] Progress Noteon 06-18-2017 Director Of Fundraising Authentication Interface Message Text Inocenteason for Visit:Chief ComplaintPatient presents with Leg Pain New Patient Right Leg & Foot PainAllergies: Review of patient's allergies indicates no known allergies..Medications: Outpatient Encounter Prescriptions as of 06/18/2017Medication Sig Dispense Refill CIMZIA PREFILLED 2 X 200 MG/ML sub-Q kit lansoprazole (PREVACID) 30 MG capsule methotrexate 2.5 MG tablet predniSONE (DELTASONE) 5 MG tablet TraMADol (ULTRAM) 50 MG tablet folic acid (FOLVITE) 1 MG tablet ENPRESSE-28 Meloxicam (MOBIC) 15 MG TABS tabletNo facility-administered encounter medications on file as of 06/18/2017.History of Present Illness (Location, Quality, Severity, Duration, Timing,Context. 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;foot;patricio;ot her (calf) pain .School: AccountantCurrent Activities: ADL'sDate of Injury: unknown (2.5 months ago-early February 2017)Injured body part: ankle;foot;patricio;other (calf)Injured side: rightInjured location: lateral;mid;anterior;me dial (Lateral Mid Calf, Anterior Medial& Lateral Ankle, Midfoot, & across the top of all Toes)Injury type: painMechanism of Injury: NAActivity in which injured: ADL'sSymptoms:numbness/ tingling;pain;swelling/ effusion;deformity;nano ing/clicking;night pain(burning sensation, cracking in ankle )Pertinent negatives: discoloration;weakness; givingout/instability;l ocking/catching;crepitu sPrevious Imaging/Testing: was a x-ray (2 view AP Lateral Lumbar Spine @ [facility] 03/25/17)Any Prior Treatments: rest/activity restriction;ice (massotherapist &chiropractor )# Previous injuries: 1 (Ankle Injury October 2016 @ [employer])Back to play: has not returned to participationPain at worst: (07/10 Worst)Aggravated factors: prolonged walking;weight bearing movement;other (painworsened at night, activity increases intensity, working out, standing, cooking)Relieving factors: rest;ice;medication;hea t (flexing toes at night relievespain)Hours of activity per week: 40Dominant Hand: right handedReview of System:Review of SystemsConstitutional: Negative for chills, fatigue, fever and weight loss.HENT: Negative for congestion and sore throat.Eyes: Negative for pain, visual disturbance and wears glasses.Respiratory: Negative for cough, shortness of breath and wheezing.Cardiovascular : Negative for chest pain, palpitations and leg swelling.Gastrointestin al: Negative for abdominal pain, blood in stool, indigestion andirritable bowel syndrome.Genitourinary: Negative for dysuria and menstrual problem.Musculoskeletal : Positive for myalgias. Negative for joint pain and jointswelling.Skin: Negative for color change, rash and wound.Neurological: Negative for seizures, syncope, weakness, light-headedness andheadaches.Endocrine: Negative for cold intolerance, heat intolerance and polydipsia.Hem/Lymph: Negative for adenopathy and bruises/bleeds easily.Psychiatric/Beha vioral: Negative for depressed mood. The patient is notnervous/anxious.Phys ical Exam:Physical ExamConstitutional: She appears well-developed and well-nourished. She is active.Cardiovascular: Intact distal pulses.Neurological: She is alert.Skin: Skin is warm.Psychiatric: She has a normal mood and affect.Ortho Exam:Back ExamTendernessThe patient is experiencing tenderness in the lumbar.Range of MotionExtension: normalFlexion: normalLateral Bend Right: normalRotation Right: normalLeft side with Straight leg raise: negativeRight side withStraight leg raise: negativeOther:Toe walk: normalHeel walk: normalSensation: normalGait: normalRight Foot/Ankle ExamSwelling: noneTenderness(R) Tenderness: TTP R lateral leg which produced back pain upon palpation.Range of MotionDorsiflexion: normalPlantar flexion: normalInversion: normalEversion: normalMuscle StrengthDorsiflexion: 5/5/5Plantar flexion: 5/5/5Anterior tibial: 5/5/5Posterior tibial: 5/5/5Gastrocsoleus: 5/5/5Peroneal muscle: 5/5/5TestsAnterior drawer: negativeVarus tilt: negativeSqueeze: negativeForced Dorsiflex: negativeOtherSensation: normalPulse: presentRadiographic Studies:X-ray Tib-fib 2 Views RightResult Date: 06/18/2017CLINICAL HISTORY: right fibula COMPARISON: NoneIMPRESSION: 2 views of the right tibia and fibula, as third repeat lateral viewis provided. were performed. There is cortical thickening involving the proximalfibular shaft extending to the mid fibula consistent with chronic repetitivestress type injury. This is most focal on the frontal view at the proximalfibular shaft laterally and may represent healed stress fracture at this site.No discrete fracture line identified at this time. There is a calcaneal in the 0site noted at the inferior margin of the calcaneus. This report has beencreated using voice recognition software. It may contain minor errors which areinherent in voice recognition technologyAssessment and Plan:Malia was seen today for leg pain.Diagnoses and all orders for this visit:Right calf pain- X-Ray Tib-Fib 2 Views Right- PT evaluate and treat; FutureRight lumbar radiculitis- PT evaluate and treat; FuturePatient Instructions:Patient InstructionsACTIVITY RECOMMENDActivity as toleratedPATIENT INSTRUCTIONSPhysical therapy/Home Exercise ProgramAnti-inflammator y drugIce/heatFOLLOW UP VISITFollow up 4 weeksPatient understand(s) and is in agreement with the assessment and plan. Ifsymptoms change or worsen, please call our office for earlier re-evaluation. Normal [facility] TIBIA FIBULA 2 VIEWS RIGHTon 06-18-2017 TIBIA FIBULA 2 VIEWS RIGHT CLINICAL HISTORY: right fibulaCOMPARISON: NoneIMPRESSION: 2 views of the right tibia and fibula, as third repeat lateral view is provided. were performed. There is cortical thickening involving the proxima fibular shaft extending to the mid fibula consistent with chronic repetitivestess type injury. This is most focal on the frontal view at the proximalfibular shaft laterally and may represent healed stress fracture at this site.No discrete fracture line identified at this time. There is a calcaneal in the 0 site noted at the inferior margin of the calcaneus.This report has been created using voice recognition software. It may containminor errors which are inherent in voice recognition technologySigned by: Dr. Susy Eaton at 06/18/2017 11:34 Normal [facility] CORNEAL TOPOGRAPHY PENTACAM OU (BOTH EYES) [facility] Vital Signs Date Time Vital Sign Value Performing Clinician Facility 06-21-2025 13:57-0400 Body height 163 cm Addison Ford MD Work Phone: [facility] 06-21-2025 13:57-0400 Body height 162.56 cm Addison Ford MD Work Phone: [facility] 06-21-2025 13:57-0400 Body mass index (BMI) [Ratio] 37.04 kg/m2 Addison Ford MD Work Phone: [facility] 06-21-2025 13:57-0400 Body weight 98 kg Addison Ford MD Work Phone: [facility] 06-21-2025 13:57-0400 Body weight 97.52 kg Addison Ford MD Work Phone: [facility] 06-21-2025 13:57-0400 BP SITE #1 Addison Ford MD Work Phone: [facility] 06-21-2025 13:57-0400 BP SITE #2 Addison Ford MD Work Phone: [facility] 06-21-2025 13:57-0400 Diastolic blood pressure 74 mm[Hg] Addison Ford MD Work Phone: [facility] 06-21-2025 13:57-0400 Diastolic blood pressure 79 mm[Hg] Addison Ford MD Work Phone: [facility] 06-21-2025 13:57-0400 Heart rate 57 /min Addison Ford MD Work Phone: [facility] 06-21-2025 13:57-0400 HGHTCHNVIS Addison Ford MD Work Phone: [facility] 06-21-2025 13:57-0400 Systolic blood pressure 156 mm[Hg] Addison Ford MD Work Phone: [facility] 06-21-2025 13:57-0400 VITALSDONE Addison Ford MD Work Phone: [facility] 10-12-2023 13:25-0500 Body height 162.6 cm Dima Boggs MD Work Phone: [facility] 10-12-2023 13:25-0500 Body weight 94 kg Dima Boggs MD Work Phone: [facility] 09-22-2023 12:09-0500 Body height 162.6 cm José Miguel Elizabeth MD Work Phone: [facility] 09-22-2023 12:09-0500 Body mass index (BMI) [Ratio] 33.47 kg/m2 José Miguel Elizabeth MD Work Phone: [facility] 09-22-2023 12:09-0500 Body weight 88.45 kg José Miguel Elizabeth MD Work Phone: [facility] 09-10-2022 11:53-0500 Body height 162.6 cm José Miguel Elizabeth Work Phone: [facility] 09-10-2022 11:53-0500 Body mass index (BMI) [Ratio] 31.07 kg/m2 José Miguel Elizabeth Work Phone: [facility] 09-10-2022 11:53-0500 Body weight 82.1 kg José Miguel Elizabeth Work Phone: [facility] Encounters Encounter Date Encounter Type Care Provider Facility Start: 06-21-2025 Visit out of hours Addison whitney MD Work Phone: [employer] Work Phone: Start: 06-21-2025 In-person encounter Addison verduzco MD Work Phone: [facility] Work Phone: Start: 03-20-2025 End: 03-20-2025 Patient encounter procedure Evangelina Bullard MD Work Phone: [facility] Comment on above: Dry eye syndrome, bi lateral (Primary Dx); Pseudophakia; Refractive error; History of ptosis repair; History of corneal abrasion Start: 03-20-2025 End: 03-20-2025 ambulatory EVANGELINA BULLARD Facility:[facility] Start: 11-02-2024 End: 11-02-2024 ambulatory JOSÉ MIGUEL [facility] [facility] Start: 11-02-2024 End: 11-02-2024 Subsequent hospital visit by physician José Miguel Elizabeth MD Work Phone: [facility] Comment on above: Other abnormal and i nconclusive findings on diagnostic imaging of breast Start: 09-27-2024 End: 09-27-2024 ambulatory [facility] Start: 09-09-2024 End: 12-09-2024 Transcribe Orders José Miguel Elizabeth MD Work Phone: [employer] [facility] Comment on above: Encounter for screen ing mammogram for malignant neoplasm of breast (Primary Dx) Start: 02-29-2024 End: 05-30-2024 Transcribe Orders Kerry Jerez Work Phone: [employer] [facility] Comment on above: Edema, unspecified ( Primary Dx); Other specified abnormal findings of blood chemistry Start: 02-17-2024 ambulatory JOSÉ MIGUEL ELIZABETH Facility :[facility] Start: 02-17-2024 End: 02-17-2024 Subsequent hospital visit by physician [place] [facility] Comment on above: Localized edema [R60 .0] Shortness of breath [R06.02] Start: 10-12-2023 ambulatory JOSÉ MIGUEL ELIZABETH Facility :[facility] Start: 10-12-2023 End: 10-12-2023 Patient encounter procedure Dima Boggs MD Work Phone: Orthopaedics Comment on above: Right knee pain, uns pecified chronicity (Primary Dx); Primary osteoarthritis of both knees; Osteoarthritis of patellofemoral joint, unspecified laterality; Rheumatoid arthritis involving multiple sites, unspecified whether rheumatoid factor present (HCC) Start: 10-12-2023 End: 10-12-2023 Subsequent hospital visit by physician [facility] Work Phone: Radiology Comment on above: Right knee pain, uns pecified chronicity [M25.561] Start: 09-22-2023 End: 09-22-2023 Subsequent hospital visit by physician José Miguel Elizabeth MD Work Phone: [facility] Comment on above: Encounter for screen ing mammogram for malignant neoplasm of breast Start: 08-14-2023 Transcribe Orders José Miguel early MD Work Phone: [facility] Comment on above: Encounter for screen ing mammogram for malignant neoplasm of breast (Primary Dx) Start: 09-10-2022 End: 09-10-2022 Subsequent hospital visit by physician José Miguel Elizabeth Work Phone: [facility] Comment on above: Encounter for screen ing mammogram for malignant neoplasm of breast Start: 08-08-2022 Transcribe Orders José Miguel early MD Work Phone: [facility] Comment on above: Encounter for screen ing mammogram for malignant neoplasm of breast (Primary Dx) Start: 01-16-2022 End: 01-16-2022 Patient encounter procedure Bobby Painter MD Work Phone: [facility] Comment on above: Subjective visual di sturbance (Primary Dx); Pseudophakia; Dry eye syndrome of both eyes Start: 12-27-2021 End: 12-27-2021 Patient encounter procedure Evangelina Bullard MD Work Phone: [facility] Comment on above: Subjective visual di sturbance (Primary Dx); Abrasion of right cornea, subsequent encounter; Pseudophakia of right eye; Blurred vision, right eye Start: 09-04-2020 End: 09-04-2020 Subsequent hospital visit by physician José Miguel Elizabeth Work Phone: [facility] Comment on above: Arrived Start: 08-19-2018 Patient encounter procedure José Miguel Elizabeth [facility] Start: 07-29-2017 End: 07-30-2017 Ambulatory [facility] Start: 07-20-2017 End: 07-21-2017 Ambulatory [facility] Start: 07-13-2017 End: 07-14-2017 Ambulatory [facility] Start: 07-10-2017 End: 07-11-2017 Ambulatory [facility] Start: 07-07-2017 End: 07-08-2017 Ambulatory [facility] Start: 07-01-2017 End: 07-02-2017 Ambulatory [facility] Start: 06-29-2017 End: 06-30-2017 Ambulatory [facility] Start: 06-23-2017 End: 06-24-2017 Ambulatory [facility] Start: 06-18-2017 End: 06-19-2017 Ambulatory PACHECO BUSTAMANTE [facility] Procedures Date Procedure Procedure Detail Performing Clinician Start: 06-21-2025 Blood pressure outside of normal parameters - follow-up not documented Addison Ford MD Work Phone: Start: 06-21-2025 BMI outside of normal parameters - no follow-up plan/reason not given Addison Ford MD Work Phone: Start: 06-21-2025 Current tobacco non-user cad cap copd pv dm Addison Ford MD Work Phone: Start: 06-21-2025 Documentation of current medications Addison Ford MD Work Phone: Start: 06-21-2025 Pain assessment documented as positive - follow-up documented Addison Ford MD Work Phone: Start: 06-21-2025 Arthrocentesis aspir&/inj major jt/bursa w/o us Addison Ford MD Work Phone: Start: 06-21-2025 Injection - triamcinolone acetonide 10 mg Addison Ford MD Work Phone: Start: 11-02-2024 Us breast uni real time with image limited José Miguel Elizabeth MD Work Phone: Start: 11-02-2024 End: 11-02-2024 Mammography José Miguel Elizabeth MD Work Phone: Start: 02-17-2024 Ct thorax w/contrast material Kerry Jerez PA-C Work Phone: Start: 02-17-2024 Dup-scan xtr veins unilateral/limited study Kerry Jerez PA-C Work Phone: Start: 10-12-2023 Radiologic examination knee 1/2 views Nicola Beatty PA-C Work Phone: Start: 09-22-2023 End: 09-22-2023 Screening digital breast tomosynthesis bi José Miguel Elizabeth MD Work Phone: Start: 09-10-2022 End: 09-10-2022 Screening digital breast tomosynthesis bi José Miguel Elizabeth Work Phone: Start: 01-16-2022 Computerized corneal topography uni/bi Bobby Painter MD Work Phone: Start: 09-04-2020 Screening digital breast tomosynthesis bi José Miguel Elizabeth Work Phone: H/O: surgery History of ptosi s repair Evangelina Bullard MD Work Phone: Plan of Treatment Date Care Activity Detail Author Start: 2041 RSV Immunization for Adults (1 - 1-dose 75+ series) RSV Immunization for Adults (1 - 1-dose 75+ series) [facility] Start: 08-21-2031 DTaP/Tdap/Td Vaccine s (2 - Td or Tdap) DTaP/Tdap/Td Vaccines (2 - Td or Tdap) [facility] Start: 08-21-2031 Urine microalbumin profile DTaP,Tdap,Td Vaccine (2 - Td or Tdap) [facility] Start: 2026 RSV Immunization age d 60 or older (1 - 1-dose 60+ series) RSV Immunization aged 60 or older (1 - 1-dose 60+ series) [facility] Start: 11-02-2025 Screening for malign ant neoplasm of breast [facility] Start: 06-21-2025 End: 06-21-2025 [employer] Work Phone: Start: 05-01-2025 Influenza vaccination S [facility] Start: 09-22-2024 Screening for malign ant neoplasm of breast [facility] Start: 05-01-2024 Covid-19 Vaccine ( season) Covid-19 Vaccine () [facility] Start: 05-01-2024 COVID-19 Vaccine () COVID-19 Vaccine () [facility] Start: 05-01-2024 Influenza vaccination [facility] Start: 02-29-2024 End: 02-28-2026 US Heart Transthoracic Transthoracic echocardiogram (TTE) complete with contrast, bubble, strain, and 3D PRN CV Echocardiography Routine Edema, unspecified Other specified abnormal findings of blood chemistry Expected: 02/29/2024 (Approximate), Expires: 02/28/2026 [facility] Work Phone: Comment on above: Expected: 02/29/2024 (Approximate), Expires: 02/28/2026 Start: 09-10-2023 Screening for malign ant neoplasm of breast Mammogram [facility] Start: 08-31-2023 Behavioral Health Screening Behavioral Health Screening [facility] Start: 08-31-2023 Depression Assessment Depression Ass essment [facility] Start: 05-01-2023 COVID-19 Vaccine ( season) COVID-19 Vaccine ( season) [facility] Start: 05-01-2023 Influenza vaccination Influenza Vacc ine (#1) [facility] Start: 05-01-2022 Influenza vaccination Influenza Vacc ine (#1) [facility] Start: 09-19-2021 COVID-19 VACCINE (4 - Booster for Pfizer series) COVID-19 VACCINE (4 - Booster for Pfizer series) [facility] Start: 08-26-2021 Screening for malign ant neoplasm of breast Breast cancer screen [place], [place] Start: 08-14-2021 COVID-19 Vaccine (4 - Booster for Pfizer series) COVID-19 Vaccine (4 - Booster for Pfizer series) [facility] Start: 05-01-2020 Influenza vaccination Flu vaccine (# 1) [place] Start: 07-16-2018 Pneumococcal vaccination Pneumococcal Vaccine (2 of 2 - PCV) [facility] Start: 07-16-2018 Pneumococcal Vaccine : 50+ (2 of 2 - PCV) Pneumococcal Vaccine: 50+ (2 of 2 - PCV) [facility] Start: 07-16-2018 Pneumococcal Vaccine : 50+ Years (2 of 2 - PCV) Pneumococcal Vaccine: 50+ Years (2 of 2 - PCV) [facility] Start: 01-27-2016 Screening for malign ant neoplasm of colon Colon cancer screen colonoscopy [place], [place] Start: 01-27-2016 Shingles Vaccine (1 of 2) Shingles Vaccine (1 of 2) [place] Start: 01-27-2016 SHINGRIX VACCINE (1 of 2) SHINGRIX VACCINE (1 of 2) [facility] Start: 01-27-2016 Zoster Vaccines (1 o f 2) Zoster Vaccines (1 of 2) [facility] Start: 2011 COLOGUARD (FIT-DNA) COLOGUARD (FIT-D NA) [facility] Start: 2011 Colonoscopy COLONOSCOPY [facility] Start: 2011 COLORECTAL CANCER SCREENING COLORECTAL CANCER SCREENING [facility] Start: [address] COLONOGRAPHY [facility] Start: 2011 DIABETES SCREEN DIABETES SCREEN [facility] Start: 2011 Diabetes Screening Diabetes Screenin g [facility] Start: 2011 FECAL OCCULT BLOOD FECAL OCCULT BLOO D [facility] Start: 2011 Lipid panel Lipid Screening [facility] Start: 2011 LIPID SCREEN LIPID SCREEN [facility] Start: 2011 Screening for malign ant neoplasm of colon [facility] Start: 2011 SIGMOIDOSCOPY SIGMOIDOSCOPY [facility] Start: 08-16-2009 MMR Vaccines (1 of 1 - Standard series) MMR Vaccines (1 of 1 - Standard series) [facility] Start: 2006 Lipid panel Lipid screen [place], [place] Start: 2006 Mammography MAMMOGRAM [facility] Start: 01-27-1996 HPV TESTING HPV TESTING [facility] Start: 01-27-1996 Screening for malign ant neoplasm of cervix [facility] Start: 1987 PAP TESTING PAP TESTING [facility] Start: 1987 Screening for malign ant neoplasm of cervix [facility] Start: 1985 DTaP/Tdap/Td vaccine (1 - Tdap) DTaP/Tdap/Td vaccine (1 - Tdap) [place] Start: 1985 Hepatitis B Vaccine (1 of 3 - 19+ 3-dose series) Hepatitis B Vaccine (1 of 3 - 19+ 3-dose series) [facility] Start: 1985 Hepatitis B Vaccines (1 of 3 - 19+ 3-dose series) Hepatitis B Vaccines (1 of 3 - 19+ 3-dose series) [facility] Start: 1985 Shingrix Vaccine (1 of 2) Shingrix Vaccine (1 of 2) [facility] Start: 1985 Urine microalbumin profile DTAP,TDAP,TD (1 - Tdap) [facility] Start: 01-27-1984 Anxiety Screening Anxiety Screening [facility] Start: 01-27-1984 Depression Screening Depression Scre ening [facility] Start: 01-27-1984 Diabetes mellitus screening Diabetes Screening [facility] Start: 01-27-1984 HEPATITIS C SCREENING HEPATITIS C [facility] Start: 01-27-1984 Hepatitis C screening Hepatitis C [facility] Start: 01-27-1984 HIV SCREENING HIV SCREENING [facility] Start: 01-27-1984 HIV screening HIV Screening [facility] Start: 1981 [facility] [place] [place] Start: 1978 Adult depression screening assessment DEPRESSION SCREENING [facility] Start: 1977 Screening for malign ant neoplasm of cervix Cervical Cancer Screening [facility] Start: 1966 Hepatitis B Vaccines (1 of 3 - 3-dose series) Hepatitis B Vaccines (1 of 3 - 3-dose series) [facility] Start: 1966 Hepatitis C screening Hepatitis C [place], [place] Start: 1966 HIV screening HIV Screening [facility] Start: 1966 Screening for malign ant neoplasm [facility] Immunizations Immunization Date Immunization Notes Care Provider [facility] 07-11-2024 influenza virus vacc ine, unspecified formulation Evangelina Bullard MD Work Phone: [facility] 08-01-2021 influenza virus vacc ine, unspecified formulation José Miguel Elizabeth Work Phone: [facility] 06-19-2021 Pfizer SARS-CoV-2 Vaccination José Miguel Elizabeth Work Phone: [facility] 12-03-2020 Pfizer SARS-CoV-2 Vaccination José Miguel Elizabeth Work Phone: [facility] 11-06-2020 Pfizer SARS-CoV-2 Vaccination José Miguel Elizabeth Work Phone: [facility] Payers Date Payer Category Payer Blue Cross Blue Shie ld Managed Care - HMO AN[employer]M BLUE CROSS [id number] 2023 Blue Cross Blue Shield BLUE CARD PPO OOS [id number] 2023 Unknown [id number] 2019 Unknown [id number] 2019 Unknown 2019 Unknown MMO MMO SUPERMED PLUS [id number] 2019-Present [phone] [address] [place] [address] PPO [id number] 2019 Unknown [id number] 2013 Unknown ANTHEM BLUE ACCE SS PPO [id number] 2013-Present [phone] [address] [place] [address] PPO [id number] 1966 Unknown [id number] Social History Date Type Detail Facility Tobacco smoking stat us ARIS Unknown if ever smoked [facility] Start: 1965 Sex Assigned At Not on file [place] Start: 05-14-2015 End: 10-12-2023 Tobacco smoking status NHIS Never smoked tobacco [facility] Start: 05-14-2015 End: 10-12-2023 Tobacco use and exposure Smokeless tobacco non-user [facility] Start: 12-27-2021 End: 03-20-2025 Alcohol intake Current drinker of alcohol (finding) [facility] Start: 1965 Sex Assigned At Female [facility] Start: 09-10-2022 End: 03-20-2025 History of Social function [facility] Start: 09-10-2022 End: 06-21-2025 Tobacco use panel [facility] Adult Depression Screening Assessment 1 [facility] Start: 11-07-2021 Gender identity Identifies as female gender (finding) [facility] Start: 11-07-2021 Sexual orientation Heterosexual (fin ding) [facility] Start: 08-31-2022 End: 09-10-2022 Exposure to SARS-CoV-2 (event) Not sure [facility] Tobacco smoking stat [facility] Tobacco smoking consumption unknown [facility] Start: 03-31-2022 Sex Female (finding) [facility] NEGATED: Highlighted rowStart: NINF History of tobacco use Passive smoker [facility] Medical Equipment Procedure Code Equipment Code Equipment Origin al Text Equipment Identifier Dates Lens Acrysof Ultrasert +21.5 Diopter Acrylic Iol 1 Piece Foldable Uv Blue - [id number] Start: 08-29-2021 Clinical Notes 12-27-2021 to 03-20-2025 Patient InstructionsDachristelle-Evangelina Saavedra MD - 03/20/2025 8:17 AM Aimee Urias, RT(R) - 02/17/2024 12:00 PM Stephany Puri RT(R) - 02/17/2024 11:00 AM EDDaksha Painter MD - 01/16/2022 9:13 AM EDT Note Date & Type Note Facility 03-20-2025 Instructions Evangelina Bullard MD - 03/20/2025 8:18 AM EDT Dry Eye management: Preservative free lubricant eye drop 4 to 8 times daily Both eyes ( refresh, systane, genteal and theratears are good brands) Drink 6 to 8 glasses of clear liquids daily Cool mist humidifier in bedroom documented in this encounter [facility] 03-20-2025 Note HNO ID: [id number] Author: EVANGELINA BULLARD MD Service: ? Author Type: Physician Type: Progress Notes Filed: 03/20/2025 08:20 Note Text: Reviewed glenn note 11/02/24 Reviewed oliverio note 10/12/24 Reviewed shayy sullivanoe 01/16/25 (H04.123) Dry eye syndrome, bilateral (primary encounter diagnosis) (Z96.1) Pseudophakia (H52.7) Refractive error (Z98.890) History of ptosis repair (Z87.828) History of corneal abrasion Dry Eye management: Preservative free lubricant eye drop 4 to 8 times daily Both eyes ( refresh, systane, genteal and theratears are good brands) Drink 6 to 8 glasses of clear liquids daily Cool mist humidifier in bedroom K abrasion resolved Right eye Post recent ptosis repair Right eye( locastro) and 10 years ago Left eye Fu one year c I have confirmed and edited as necessary the relevant ophthalmic history, ROS, and the neuro exam findings as obtained by others. I have seen and examined Malia Trevino. I have discussed the case and the management of this patient's care with the Resident/Fellow, if applicable. I also have reviewed and agree with the assessment and plan as stated above and agree with all of its relevant components. Evangelina Saavedra MD [facility] 03-20-2025 History of Presen t illness Narrative Reviewed glenn note 11/02/24 Reviewed oliverio note 10/12/24 Reviewed shayy pacheco 01/16/25 (H04.123) Dry eye syndrome, bilateral (primary encounter diagnosis) (Z96.1) Pseudophakia (H52.7) Refractive error (Z98.890) History of ptosis repair (Z87.828) History of corneal abrasion Dry Eye management: Preservative free lubricant eye drop 4 to 8 times daily Both eyes ( refresh, systane, genteal and theratears are good brands) Drink 6 to 8 glasses of clear liquids daily Cool mist humidifier in bedroom K abrasion resolved Right eye Post recent ptosis repair Right eye( locastro) and 10 years ago Left eye Fu one year c I have confirmed and edited as necessary the relevant ophthalmic history, ROS, and the neuro exam findings as obtained by others. I have seen and examined Malia Trevino. I have discussed the case and the management of this patient's care with the Resident/Fellow, if applicable. I also have reviewed and agree with the assessment and plan as stated above and agree with all of its relevant components. Evangelina Saavedra MD documented in this encounter [facility] 02-17-2024 History of Presen t illness Narrative Radiology Service Progress Note DATE OF SERVICE: February 17, 2024 TIME: 12:25 PM PATIENT IDENTITY VERIFICATION COMPLETED USING TWO (2) STANDARD IDENTIFIERS: Name and Date of confirmed by patient verbally. FALL SCREENING: Has the patient had 2 falls in the last year or 1 fall with injury or currently using an Ambulatory Assistive Device (Walker, Cane, Wheelchair, Crutches, etc.)? No PATIENT GENDER DATA: Female. status: : No status: NO. PATIENT RELEVANT IMPLANT DATA REVIEWED: Not Applicable PATIENT PRESENTS WITH AN IMPLANTABLE OR ATTACHED ARCHITECTURAL INSPECTOR: No ALLERGIES: Reviewed and unchanged CONTRAST ALLERGY: NO. EXAM: CT -CONTRAST INDUCED NEPHROPATHY RISK FACTORS: Not applicable CREATININE: No results found for: CREAT, EGFROTH, EGFRAA P.O.C.T. RESULTS: N/A February 17, 2024 TREATMENT: N/A PERIPHERAL IV DATA: Ambulatory: A peripheral IV was started in the Left with a Angio cath: 20 gauge. RADIOLOGY DEPARTMENT: CT; Exam(s) Completed: PE Study SIGNATURE: RT Janine(Juwan) PATIENT NAME: Malia Trevino DATE: February 17, 2024 TIME: 12:25 PM documented in this encounter [facility] 02-17-2024 Note HNO ID: [id number] Author: AIMEE BENITES RT (R) Service: ? Author Type: Technologist Type: Progress Notes Filed: 02/17/2024 12:25 Note Text: Radiology Service Progress Note DATE OF SERVICE: February 17, 2024 TIME: 12:25 PM PATIENT IDENTITY VERIFICATION COMPLETED USING TWO (2) STANDARD IDENTIFIERS: Name and Date of confirmed by patient verbally. FALL SCREENING: Has the patient had 2 falls in the last year or 1 fall with injury or currently using an Ambulatory Assistive Device (Walker, Cane, Wheelchair, Crutches, etc.)? No PATIENT GENDER DATA: Female. status: : No status: NO. PATIENT RELEVANT IMPLANT DATA REVIEWED: Not Applicable PATIENT PRESENTS WITH AN IMPLANTABLE OR ATTACHED ARCHITECTURAL INSPECTOR: No ALLERGIES: Reviewed and unchanged CONTRAST ALLERGY: NO. EXAM: CT -CONTRAST INDUCED NEPHROPATHY RISK FACTORS: Not applicable CREATININE: No results found for: CREAT, EGFROTH, EGFRAA P.O.C.T. RESULTS: N/A February 17, 2024 TREATMENT: N/A PERIPHERAL IV DATA: Ambulatory: A peripheral IV was started in the Left with a Angio cath: 20 gauge. RADIOLOGY DEPARTMENT: CT; Exam(s) Completed: PE Study SIGNATURE: RT Janine(Juwan) PATIENT NAME: Malia Trevino DATE: February 17, 2024 TIME: 12:25 PM [facility] 02-17-2024 History of Presen t illness Narrative a Radiology Service Progress Note PATIENT NAME: Malia Trevino DATE OF SERVICE: February 17, 2024 TIME: 11:45 AM PATIENT IDENTITY VERIFICATION COMPLETED USING TWO (2) IDENTIFIERS: Name and Date of confirmed by patient verbally. FALL SCREENING: Has the patient had 2 falls in the last year or 1 fall with injury or currently using an Ambulatory Assistive Device (Walker, Cane, Wheelchair, Crutches, etc.)? No PATIENT GENDER DATA: Female. status: : No status: N/A PATIENT RELEVANT IMPLANT DATA REVIEWED: Not Applicable PATIENT PRESENTS WITH AN IMPLANTABLE OR ATTACHED ARCHITECTURAL INSPECTOR: No RADIOLOGY DEPARTMENT: Ultrasound PERIPHERAL IV DATA: Not applicable SIGNED BY: RT New(R) February 17, 2024 11:45 AM documented in this encounter [facility] 02-17-2024 Note HNO ID: [id number] Author: STEPHANY MCNULTY RT (R) Service: Radiology Author Type: Technologist Type: Progress Notes Filed: 02/17/2024 11:45 Note Text: a Radiology Service Progress Note PATIENT NAME: Malia Trevino DATE OF SERVICE: February 17, 2024 TIME: 11:45 AM PATIENT IDENTITY VERIFICATION COMPLETED USING TWO (2) IDENTIFIERS: Name and Date of confirmed by patient verbally. FALL SCREENING: Has the patient had 2 falls in the last year or 1 fall with injury or currently using an Ambulatory Assistive Device (Walker, Cane, Wheelchair, Crutches, etc.)? No PATIENT GENDER DATA: Female. status: : No status: N/A PATIENT RELEVANT IMPLANT DATA REVIEWED: Not Applicable PATIENT PRESENTS WITH AN IMPLANTABLE OR ATTACHED ARCHITECTURAL INSPECTOR: No RADIOLOGY DEPARTMENT: Ultrasound PERIPHERAL IV DATA: Not applicable SIGNED BY: RT New(R) February 17, 2024 11:45 AM [facility] 11-09-2023 History of Presen t illness Narrative Images from the original note were not included. DEPARTMENT OF ORTHOPAEDICS HISTORY OF PRESENT ILLNESS: This is a pleasant 58 year old female, who presents today with a chief complaint of right>left knee pain. She complains of dull and aching pain about the anterior, medial, and lateral aspect of approximately 5 months duration. This pain is constant. She denies trauma. She complains that the pain is 4/10. She denies nocturnal pain. The pain is exacerbated by managing stairs and prolonged sitting. Previous treatments have included Rx NSAIDs and viscosupplementation. She denies proximal radiation. She denies distal radiation. She denies numbness, tingling, or electric shocks. She reports clicking. She reports swelling and/or warmth. PAIN EVALUATION 10/09/2023 0816 10/12/2023 1326 Pain Level: 5 4 Pain Location: Knee-Right Knee-Right Description: Aching;Burning;Stabbing/Not Incision;Tightness Burning;Tightness;Aching Duration Amount of Time: 5 -- ongoing Duration Units: Months -- Frequency: Continuous Continuous Intervention/Comfort measure: Medication;Exercise Medication;Exercise Comments: Had gel shot in Jul 2023 Have RA since 1983 -- PAST MEDICAL HISTORY Diagnosis Date GERD (gastroesophageal reflux disease) Pseudophakia, left eye Pseudophakia, right eye 08/29/2021 Rheumatoid arthritis (HCC) PAST SURGICAL HISTORY Procedure Laterality Date CATARACT EXTRACTION W/ INTRAOCULAR LENS IMPLANT HX Left PAST SURGICAL HISTORY OF Foot surgery PAST SURGICAL HISTORY OF eye lid surgery left upper eyelid XCAPSL CTRC RMVL INSJ IO LENS PROSTH W/O ECP Right 08/29/2021 Current Outpatient Medications Medication Sig Dispense Refill methotrexate 2.5 mg tablet Take by mouth one time only. 8 tablets every thursday certolizumab pegol (CIMZIA) 400 mg/2 mL (200 mg/mL x 2) sykt sub-q syringe kit Inject 400 mg subcutaneously every 2 weeks. meloxicam (MOBIC) 15 mg tablet Take 15 mg by mouth once daily. LANSOPRAZOLE ORAL Take 15 mg by mouth once daily. folic acid 1 mg tablet Take 1 mg by mouth twice daily. predniSONE (DELTASONE) 5 mg tablet Take 5 mg by mouth once daily. As needed TRAMADOL HCL (TRAMADOL ORAL) Take 50 mg by mouth once daily as needed (pain). As needed erythromycin base (ILOTYCIN OPHTHALMIC) Use 1 application in the right eye daily at bedtime. (Patient not taking: Reported on 01/16/2022 ) prednisoLONE acetate (PRED FORTE, ECONOPRED PLUS) 1 % ophthalmic suspension Use 1 Drop in the right eye four times daily. (Patient not taking: Reported on 01/16/2022 ) 5 mL 1 No current facility-administered medications for this visit. ALLERGIES No Known Allergies FAMILY HISTORY Family history unknown: Yes Social History Tobacco Use Smoking status: Never Smokeless tobacco: Never Substance Use Topics Alcohol use: Yes Drug use: No Occupation: cost accountant Activity level: recreational, sport/activity: none REVIEW OF SYSTEMS: GENERAL: negative for malaise, significant weight loss, night sweats and fever HEENT: No changes in hearing or vision, no nose bleeds or other nasal problems., No trouble swallowing RESPIRATORY: Negative for cough, wheezing and shortness of breath CARDIOVASCULAR: Negative for chest pain, leg swelling, palpitations, orthopnea GI: Negative for abdominal discomfort, hematochezia, melena, hematemesis, change in bowel habits, diarrhea, constipation, nausea or vomiting. MUSCULOSKELETAL: See HPI. PSYCH: Negative for sleep disturbance, mood disorder and recent psychosocial stressors. HEMATOLOGY Negative for prolonged bleeding, bruising easily, and swollen nodes. ENDOCRINE: Negative for cold or heat intolerance, polyuria, polydipsia and goiter. NEURO: negative for lightheadedness, dizziness, tremor, gait imbalance, syncope and seizures. RADIOGRAPHS: Last XR Knee - Impression Only XR KNEE SPECIFY 1V RIGHT Exam End: 10/12/2023 1:23 PM (Final result) Impression: IMPRESSION: Severe lateral patellofemoral compartment osteoarthritis, left greater than right ... OTHER STUDIES: Last MRI Knee - Impression Only No resulted procedures found. PHYSICAL EXAM: Ht 5' 4 (1.63m) Wt 207 lb 3.7 oz (94.0kg) LMP 08/29/2020 BMI 35.55 kg/(m^2). General: Appears stated age, well built, in no apparent distress. Psychiatric: Mood and affect appropriate. Alert and oriented x3. Musculoskeletal Exam: Gait and Station antalgic: left. BILATERAL KNEE EXAM: Inspection Skin Positive: swelling. Incision No evidence of surgical incisions. Atrophy No evidence of muscular atrophy. Range of Motion Knee 5-110 degrees Patella Decreased patellar mobility Palpation Effusion 1+ effusion Tenderness medial patellar facet and lateral patellar facet Crepitance Positive palpable patellofemoral crepitance Meniscus Negative medial and lateral Mo's test Stability Negative varus/valgus instability, negative Mikal's, negative posterior drawer and negative Dial test Lumbar Spine: Lumbar spine normal to inspection, palpation and motion. Negative straight leg raise and nerve root tension signs. Negative Mary's, calf tenderness or palpable cords. Bilateral lower extremities show equal motion of the hips and ankles. Normal strength, tone, and stability of both lower extremities distally. Neurologic Exam: Intact medial leg and foot(L4), lateral leg and 1st web space(L5), lateral foot(S1) sensation in both lower extremities. Intact patellar tendon(L4), and Achilles(S1) reflexes in both lower extremities. Vascular: 2+ pedal pulses of both lower extremities. PROCEDURE: Not applicable IMPRESSION: 1. bilateral patellofemoral osteoarthritis. Superimposed on rheumatoid arthritis PLAN: 1. Medication: Continue current medications. 2. Test(s)/Imaging/Referral(s): None Pain clinic referral. 3. Intervention: Continue conservative treatment.Consideration for corticosteroid injection can be given and ultimately if pain persist despite conservative measures, arthroplasty will be discussed. 4. Follow-up: 1-2 months . Dima Boggs MD I would like to thank you for the kind referral of . I appreciate the opportunity to be involved in her care. Please do not hesitate to call upon me if I may be of further assistance. documented in this encounter [facility] 10-12-2023 Note HNO ID: [id number] Author: TEQUILA ALVAREZ Tech Service: Radiology Author Type: Clinical Editor Type: Progress Notes Filed: 10/12/2023 13:24 Note Text: Radiology Service Progress Note PATIENT NAME: Malia Trevino DATE OF SERVICE: October 12, 2023 TIME: 1:23 PM PATIENT IDENTITY VERIFICATION COMPLETED USING TWO (2) IDENTIFIERS: Name and Date of confirmed by patient verbally. FALL SCREENING: Has the patient had 2 falls in the last year or 1 fall with injury or currently using an Ambulatory Assistive Device (Walker, Cane, Wheelchair, Crutches, etc.)? No PATIENT GENDER DATA: Female. status: : No status: NO. PATIENT RELEVANT IMPLANT DATA REVIEWED: Not Applicable PATIENT PRESENTS WITH AN IMPLANTABLE OR ATTACHED ARCHITECTURAL INSPECTOR: No RADIOLOGY DEPARTMENT: General X-ray: Exam(s) Completed: Lower Extremity X-Ray(s): Knee, Merchant Only Right PERIPHERAL IV DATA: Not applicable SIGNED BY: Melquiades Ravi October 12, 2023 1:23 PM [facility] 10-12-2023 History of Presen t illness Narrative Radiology Service Progress Note PATIENT NAME: Malia Trevino DATE OF SERVICE: October 12, 2023 TIME: 1:23 PM PATIENT IDENTITY VERIFICATION COMPLETED USING TWO (2) IDENTIFIERS: Name and Date of confirmed by patient verbally. FALL SCREENING: Has the patient had 2 falls in the last year or 1 fall with injury or currently using an Ambulatory Assistive Device (Walker, Cane, Wheelchair, Crutches, etc.)? No PATIENT GENDER DATA: Female. status: : No status: NO. PATIENT RELEVANT IMPLANT DATA REVIEWED: Not Applicable PATIENT PRESENTS WITH AN IMPLANTABLE OR ATTACHED ARCHITECTURAL INSPECTOR: No RADIOLOGY DEPARTMENT: General X-ray: Exam(s) Completed: Lower Extremity X-Ray(s): Knee, Merchant Only Right PERIPHERAL IV DATA: Not applicable SIGNED BY: Melquiades Ravi October 12, 2023 1:23 PM documented in this encounter [facility] 01-16-2022 History of Presen t illness Narrative Assessment and Plan 1. Subjective visual disturbance -patient with history of ptosis repair right eye Oct 2021 -corneal abrasion - healed -increased astigmatism from 0.97 --> 2.3 right eye - regular -proptosis right eye as well - unclear if new 2. Dry eye syndrome both eyes -patient with long-standing rheumatoid arthritis on MTX -minimal ocular surface changes 3. Pseudophakia -stable both eyes -aim -1.75 right eye, plano left eye -was happy with visual outcome, feels worsened after lid surgery Plan: -overall cornea is looking good, with resolved abrasion and good tear film -seeing Dr. Moon again - proptosis is new? Would orbital imaging be helpful? -continue ocular surface lubrication -back to me afterwards with pentacam both eyes I have confirmed and edited as necessary the relevant ophthalmic history, ROS, and the neuro exam findings as obtained by others. I have seen and examined Malia Trevino. I have discussed the case and the management of this patient's care with the Resident/Fellow, if applicable. I also have reviewed and agree with the assessment and plan as stated above and agree with all of its relevant components. Bobby Painter MD January 16, 2022 9:13 AM documented in this encounter [facility] 12-27-2021 History of Presen t illness Narrative (H53.10) Subjective visual disturbance (primary encounter diagnosis) (S05.01XD) Abrasion of right cornea, subsequent encounter (Z96.1) Pseudophakia of right eye (H53.8) Blurred vision, right eye Patient with multiple visual disturbance after ptosis sx Right eye with po k abrasion. k abrasion appears mostly healed with a early stromal scar. Unable to isolate a tropia. Large shift in cylinder Right eye - possibly from k abrasion/ptosis procedure. rec she try otc readers with Right eye lens taken out.... try 1.25 , 1.50,1.75 to see which one gives Left eye best computer vision. rec patient wait to obtain glasses or cl for a few weeks T/c cornea consult to see if any further tx for k recommended No real Posterior capsular opacity to explain glare but Right eye palpebral fissure greater after ptosis repair. Patient working with [employer] on this. I have confirmed and edited as necessary the relevant ophthalmic history, ROS, and the neuro exam findings as obtained by others. I have seen and examined Malia Trevino. I have discussed the case and the management of this patient's care with the Resident/Fellow, if applicable. I also have reviewed and agree with the assessment and plan as stated above and agree with all of its relevant components. Evangelina Saavedra MD documented in this encounter [facility] Evaluation note Diagnosis Subjective visual disturbance- Primary Subjective visual disturbance, unspecified Abrasion of right cornea, subsequent encounter Pseudophakia of right eye Lens replaced by other means Blurred vision, right eye Other specified visual disturbances documented in this encounter [facility] note* Diagnosis Subjective visual disturbance- Primary Subjective visual disturbance, unspecified Pseudophakia Lens replaced by other means Dry eye syndrome of both eyes documented in this encounter [facility] note* Diagnosis Encounter for screening mammogram for malignant neoplasm of breast documented in this encounter [facility] note* Diagnosis Right knee pain, unspecified chronicity- Primary Primary osteoarthritis of both knees Primary localized osteoarthrosis, lower leg Osteoarthritis of patellofemoral joint, unspecified laterality Rheumatoid arthritis involving multiple sites, unspecified whether rheumatoid factor present (HCC) documented in this encounter [facility] note* Diagnosis Encounter for screening mammogram for malignant neoplasm of breast- Primary Encounter for screening mammogram for malignant neoplasm of breast documented in this encounter [facility] note* Diagnosis Right knee pain, unspecified chronicity documented in this encounter [facility] note* Diagnosis Edema, unspecified- Primary Other specified abnormal findings of blood chemistry documented in this encounter [facility] note* Diagnosis Encounter for screening mammogram for malignant neoplasm of breast documented in this encounter [facility] note* Diagnosis Encounter for screening mammogram for malignant neoplasm of breast- Primary Encounter for screening mammogram for malignant neoplasm of breast documented in this encounter [facility] note* Diagnosis Other abnormal and inconclusive findings on diagnostic imaging of breast documented in this encounter [facility] note* Diagnosis Dry eye syndrome, bilateral- Primary Pseudophakia Lens replaced by other means Refractive error Unspecified disorder of refraction and accommodation History of ptosis repair Other states following surgery of eye and adnexa History of corneal abrasion Personal history of other injury documented in this encounter [facility] for referral (narrative)* Diagnostic Procedure Only (Routine) - Closed Specialty Diagnoses / Procedures Referred By Yanira pfeiffer Referred To Contact XR IMAGING Diagnoses Right knee pain, unspecified chronicity Procedures XR KNEE SPECIFY 1V RIGHT RADIOLOGIC EXAMINATION KNEE / VIEWS Nicola Beatty PA-C [address] [place] [address] [place] [address] Referral ID Status Reason Start Date Expiration Date V isits Requested Visits Authorized [id number] Closed Auto-Generate d Referral 10/12/2023 11/10/2024 1 1 [facility] for referral (narrative)* Diagnostic Procedure Only (Routine) - Closed Specialty Diagnoses / Procedures Referred By Contlyly pfeiffer Referred To Contact XR IMAGING Diagnoses Right knee pain, unspecified chronicity Procedures XR KNEE SPECIFY 1V RIGHT RADIOLOGIC EXAMINATION KNEE 1/2 VIEWS Nicola Beatty PA-C [address] [place] [address] [place] [address] Referral ID Status Reason Start Date Expiration Date V isits Requested Visits Authorized [id number] Closed Auto-Generate d Referral 10/12/2023 11/10/[facility] Diagnostic Procedure Only (Routine) - Closed Specialty Diagnoses / Procedures Referred By Yanira pfeiffer Referred To Contact XR IMAGING Diagnoses Right knee pain, unspecified chronicity Procedures XR KNEE GENERAL 4V AP BOTH/PA BOTH/LAT/MERC RIGHT RADIOLOGIC EXAM KNEE COMPLETE 4/MORE VIEWS Austin Yanez PA-C [address] [place] [address] [place] [address] Referral ID Status Reason Start Date Expiration Date V isits Requested Visits Authorized [id number] Closed Auto-Generate d Referral 09/29/2023 10/28/2024 1 1 [facility] Summary Purpose Family History Family Member Condition Father High blood pressure Mother COPD Father Alive Mother Alive Advance Directives Documents on File Type Date Recorded Patient Control Panel Operator Expl anation ACP-Advance Directive ACP-Power of Infrastructure Director Documents on File Type Date Recorded Patient Control Panel Operator Expl anation Advance Directive(s) 08/29/2021 7:07 AM Medications Administered Section Active Administered Medications - up to 3 most recent administrations Medication Order MAR Action Action Date Dose Rate Site fluorescein-benoxinate 0.25-0.4 % 1 Drop (FLURESS) 1 Drop, BOTH EYES, DIRECTED, Starting on 12/27/21 at 1400, Until 12/28/21 at 0159, Administer for applanation tonometry. In the event of a Fluress shortage, administer 1 drop of Timber-Fluor into both eyes as directed for applanation tonometry., [facility] MED ORDERS Given 12/27/2021 2:00 PM EDT 1 Drop PHENYLephrine 2.5 % 1 Drop (AK-DILATE, ANNIE-SYNEPHRINE) 1 Drop, BOTH EYES, DIRECTED, Starting on Thu12/27/21 at 1400, Until 12/28/21 at 0159, Administer for dilation PROTECT FROM LIGHT, [facility] CLINIC MED ORDERS Given 12/27/2021 2:00 PM EDT 1 Drop tropicamide 1 % 1 Drop (MYDRIACYL) 1 Drop, BOTH EYES, DIRECTED, Starting on Thu12/27/21 at 1400, Until 12/28/21 at 0159, Administer for dilation, [facility] CLINIC MED ORDERS Given 12/27/2021 2:00 PM EDT 1 Drop Inactive Administered Medications - up to 3 most recent administrations Medication Order MAR Action Action Date Dose Rate Site fluorescein-benoxinate 0.25-0.4 % 1 Drop (FLURESS) 1 Drop, BOTH EYES, ONCE, 1 dose, On Michelle 01/16/22 at 0900, FOR THE EYE Given 01/16/2022 9:00 AM EDT 1 Drop Reason for Referral Specialty Diagnoses / Procedures Referred By Contac t Referred To Contact Cardiology Diagnoses Edema, unspecified Other specified abnormal findings of blood chemistry Procedures Transthoracic echocardiogram (TTE) complete with contrast, bubble, strain, and 3D PRN OK ECHO TTHRC R-T 2D W/WOM-MODE COMPL SPEC&COLR D OK TTE W OR WO FOL WCON,DOPPLER Kerry Jerez [address] [place] [address] Referral ID Status Reason Start Date Expiration Date V isits Requested Visits Authorized [id number] Authorized 02/29/2024 02/28/2025 1 1 Additional Source Comments INFORMATION SOURCE (unrecogn ized section and content) DATE CREATED AUTHOR 02/18/2018 [facility] DATE CREATED AUTHOR AUTHOR'S ORGANIZ ATION 08/28/2018 [facility] DATE CREATED AUTHOR AUTHOR'S ORGANIZ ATION 09/07/2021 [facility] DATE CREATED AUTHOR AUTHOR'S ORGANIZ ATION 10/13/2023 [facility] DATE CREATED AUTHOR AUTHOR'S ORGANIZ ATION 02/19/2024 [facility] DATE CREATED AUTHOR AUTHOR'S ORGANIZ ATION 11/04/2024 [facility] DATE CREATED AUTHOR AUTHOR'S ORGANIZ ATION 03/21/2025 [facility] Source Comments (unrecognize d section and content) In the event this informatio n is protected by the Federal Confidentiality of Alcohol and Drug Abuse Patient Records regulations: The Federal rules restrict any use of the information to criminally investigate or prosecute any alcohol or drug abuse patient.[facility] the event this information is protected by the Federal Confidentiality of Alcohol and Drug Abuse Patient Records regulations: The Federal rules restrict any use of the information to criminally investigate or prosecute any alcohol or drug abuse patient.[facility] the event this information is protected by the Federal Confidentiality of Alcohol and Drug Abuse Patient Records regulations: The Federal rules restrict any use of the information to criminally investigate or prosecute any alcohol or drug abuse patient.[facility] the event this information is protected by the Federal Confidentiality of Alcohol and Drug Abuse Patient Records regulations: The Federal rules restrict any use of the information to criminally investigate or prosecute any alcohol or drug abuse patient.[facility] the event this information is protected by the Federal Confidentiality of Alcohol and Drug Abuse Patient Records regulations: The Federal rules restrict any use of the information to criminally investigate or prosecute any alcohol or drug abuse patient.[facility] the event this information is protected by the Federal Confidentiality of Alcohol and Drug Abuse Patient Records regulations: The Federal rules restrict any use of the information to criminally investigate or prosecute any alcohol or drug abuse patient.[facility] the event this information is protected by the Federal Confidentiality of Alcohol and Drug Abuse Patient Records regulations: The Federal rules restrict any use of the information to criminally investigate or prosecute any alcohol or drug abuse patient.[facility] Reason for Visit (unrecogniz ed section and content) right shoulder pain, New/Est - 1st visit with physician Reason Comments diplopia Reason Comments Corneal Abrasion Follow Up Reason Comments New Pain Specialty Diagnoses / Procedures Referred By Yanira pfeiffer Referred To Contact Radiology / RADIO CT SCAN MAIN F30 Diagnoses Shortness of breath Shortness of breath [R06.02] Auth# [id number] exp:04/02/[address] ANGIOGRAPHY CHEST W/CONTRAST/NONCONTRAST CTA WWO CHEST 400 Kerry Jerez PA-C [address] [place] [address] Scan Main F30 [address] [id number] Referral ID Status Reason Start Date Expiration Date Visits Re quested Visits Authorized [id number] Closed 02/17/2024 04/02/2024 1 1 Reason Comments Tearing Both Eyes Difficulty Reading Both Eyes Care Teams (unrecognized sec tion and content) Machine Design Checker Relationship Specialty Start Date End Date José Miguel Elizabeth [address] [place] [address] PCP - General Family Practice 10/28/18 Machine Design Checker Relationship Specialty Start Date End Date José Miguel Elizabeth [address] [place] [address] PCP - General Family Practice 10/28/18 Machine Design Checker Relationship Specialty Start Date End Date José Miguel Elizabeth MD [address] [place] [phone] PCP - General 05/02/19 Machine Design Checker Relationship Specialty Start Date End Date José Miguel Elizabeth MD [address] [place] [address] PCP - General Family Medicine 10/28/18 Machine Design Checker Relationship Specialty Start Date End Date José Miguel Elizabeth MD [address] [place] [phone] PCP - General 05/02/19 Machine Design Checker Relationship Specialty Start Date End Date José Miguel Elizabeth MD [address] [place], [place] [phone] PCP - General Family Medicine 10/28/18 Machine Design Checker Relationship Specialty Start Date End Date José Miguel Elizabeth MD [address] [place], [place] [id number] PCP - General Family Medicine 10/28/18 Machine Design Checker Relationship Specialty Start Date End Date José Miguel Elizabeth MD [address] [place], [place] [phone] PCP - General Family Medicine 10/28/18 Machine Design Checker Relationship Specialty Start Date End Date José Miguel Elizabeth MD [address] [place] [phone] PCP - General 05/02/19 Machine Design Checker Relationship Specialty Start Date End Date José Miguel Elizabeth [address] [place] [phone] PCP - General 05/02/19 Machine Design Checker Relationship Specialty Start Date End Date José Miguel Elizabeth MD [address] [place] [phone] PCP - General 05/02/19 Machine Design Checker Relationship Specialty Start Date End Date José Miguel Elizabeth MD [address] [place] [phone] PCP - General 05/02/19 Machine Design Checker Relationship Specialty Start Date End Date José Miguel Elizabeth MD [address] [place] [address] PCP - General Family Medicine 10/28/18 FOR RECORDS PERTAINING TO PATIENTS WHO ARE OR HAVE BEEN ENROLLED IN A CHEMICAL DEPENDENCY/SUBSTANCEABUSE PROGRAM, SOME INFORMATION MAY BE OMITTED. This clinical summary was aggregated from multiple sources. Caution should be exercised in using it in the provision of clinical care. This summary normalizes information from multiple sources, and as a consequence, information in this document may materially change the coding, format and clinical context of patient data. In addition, data may be omitted in some cases. CLINICAL DECISIONS SHOULD BE BASED ON THE PRIMARY CLINICAL RECORDS. [facility]. provides no warranty or guarantee of the accuracy or completeness of information in this document.
[2025-08-09 16:55] LABS: Hematocrit 41.5 % (37-47); Hemoglobin 13.4 g/dL (12.0-15.0); Immature Granulocytes Count 0.000 X10^3/uL (0.0-0.0); Mean Corp Hgb Conc 32.3 g/dL (32-36); Mean Corpuscular Volume 102.5 fL (81-99); Mean Platelet Vol. 10.1 fl (6.2-12.0); NRBC Flagged by Analyzer 0 % (0-5); Platelet Count 237 K/mm3 (150-450); RBC Distribution Width CV 13.2 % (11.6-14.6); RBC Distribution Width SD 49.1 fl (35.1-43.9); Red Blood Count 4.05 M/mm3 (4.2-5.4); White Blood Count 4.0 K/mm3 (4.4-11.0)
[2025-08-09 17:28] LABS: Ferritin 95 ng/mL (22-378); Vitamin B12 1009 pg/mL (180-914)
[2025-08-09 18:31] LABS: FOLATES,SERUM (FOLIC ACID) > 40.00 ng/mL (4.60-34.80)
[2025-08-09 20:27] LABS: Iron 124 ug/dL (50-170); Iron Binding Capacity,Total 289 ug/dL (250-450); Iron Binding Capacity,Unsat 165 ug/dL (228-428)
== END | disposition home or self-care (01) ==
LOC: VSLAB 14:01
DX: D64.9 Anemia, unspecified (principal)
CPT/HCPCS: 36415; 82607; 82728; 82746; 83540; 83550; 85025

== ENCOUNTER → 2025-08-21 | Outpatient (CLI) | payer BC, SELFPAY ==
[2025-08-21 13:55] LABS: FOLATES,SERUM (FOLIC ACID) > 40.00 ng/mL (4.60-34.80)
== END | disposition home or self-care (01) ==
LOC: VSLAB 08:24
DX: D75.89 Other specified diseases of blood and blood-forming organs (principal)
CPT/HCPCS: 36415; 82746